=== PATIENT | female | born 1940 | race Caucasian/White ===

== ENCOUNTER 2017-09-07 14:54 | Inpatient (IN) | payer MEDICARE ==
[~2017-09-07] VITALS: Ht 152.4 cm; Wt 84.4 kg
[2017-09-07] VITALS (8 sets, daily range): BP systolic 98–152; BP diastolic 56–91; PULSE 77–148; RESP 16–20; TEMP 98–98.1; O2SAT 95–99
[~2017-09-07 14:54] MED LIST: METO25TA3 PO; MULT1TAB46
[2017-09-07] MEDS ORDERED: SODIUM CHLORIDE 0.9% FLUSH 10 ML FLUSH IVF PRN (15:30)
[2017-09-07] MEDS ORDERED: DILTIAZEM HCL 25 MG/5 ML VIAL IV PUSH ONE (15:30)
[2017-09-07 15:52] LABS: AUTOMATED NEUTROPHIL # 7.4 TH/MM3 (1.8-7.7); BASOPHIL # 0.1 TH/MM3 (0-0.2); BASOPHIL % 1.3 % (0.0-2.0); EOSINOPHIL # 0.2 TH/MM3 (0-0.4); EOSINOPHIL % 1.4 % (0.0-4.0); HEMATOCRIT 41.2 % (35.0-46.0); HEMO FLAGS DIFF FINAL; LYMPH % 23.7 % (9.0-44.0); LYMPHOCYTE # 2.6 TH/MM3 (1.0-4.8); MEAN CELL VOLUME 91.6 FL (80.0-100.0); MEAN CORPUSCULAR HEMOGLOBIN 30.5 PG (27.0-34.0); MEAN CORPUSCULAR HGB CONC 33.3 % (32.0-36.0); NEUT % 67.6 % (16.0-70.0); PLATELET COUNT 351 TH/MM3 (150-450); RED BLOOD COUNT 4.49 MIL/MM3 (4.00-5.30); RED CELL DISTRIBUTION WIDTH 14.7 % (11.6-17.2)
[2017-09-07 16:01] LABS: APTT (PATIENT) 26.2 SEC (24.3-30.1); INTERNATIONAL NORMALIZED RATIO 0.9 RATIO; PROTHROMBIN TIME - PATIENT 10.4 SEC (9.8-11.6)
--- NOTE | 2017-09-07 16:05 | RADRPT ---
EXAM DATE/TIME: 09/07/2017 15:28 [place] COMPARISON: No previous studies available for comparison. INDICATIONS : Elevated heart rate. MEDICAL HISTORY : None. SURGICAL HISTORY : None. ENCOUNTER: Initial ACUITY: 2 days PAIN SCORE: 0/10 LOCATION: chest FINDINGS: A single view of the chest demonstrates the lungs to be symmetrically aerated without evidence of mas s, infiltrate or effusion. Atherosclerotic calcifications are present in the aorta. The cardiomedias tinal contours are unremarkable. Osseous structures are intact. CONCLUSION: No acute disease. Luis Purcell MD on September 07, 2017 at 16:03 Board Certified Radiologist. This report was verified electronically.
[2017-09-07 16:16] LABS: ALT (GPT) 21 U/L (10-53); ANION GAP 7 MEQ/L (5-15); AST (GOT) 19 U/L (15-37); BICARBONATE 25.9 MEQ/L (21.0-32.0); BLOOD UREA NITROGEN 15 MG/DL (7-18); CHLORIDE 106 MEQ/L (98-107); GLOMERULAR FILTRATION RATE 86 ML/MIN (>89); POTASSIUM 3.9 MEQ/L (3.5-5.1); SODIUM (NA) 139 MEQ/L (136-145)
[2017-09-07 16:22] LABS: ALKALINE PHOSPHATASE 81 U/L (45-117); TOTAL BILIRUBIN ADULT 0.2 MG/DL (0.2-1.0)
[2017-09-07] MEDS ORDERED: DILTIAZEM HCL 25 MG/5 ML VIAL IV PUSH PRN (16:45)
[2017-09-07] MEDS ORDERED: SODIUM CHLORID 0.9% 500 ML INJ 500 ML IV ONE (16:45)
--- NOTE | 2017-09-07 16:50 | PD ---
HPI Chief Complaint: Cardiac Complaint Time Seen by Provider: 15:20 Travel History International Travel<30 days: No Contact w/Intl Traveler<30days: No Traveled to known affect area: No History of Present Illness HPI Patient is a 77 year old female who comes in due to rapid heart rate. She says she was at her doctor's for a routine checkup when she was found to be in atrial fibrillation. She was started on metoprolol, but this did not work, so she was told to come to the emergency department. She denies any symptoms. She has not had any chest pain or shortness of breath. She says at the moment she does feel like her heart is racing. She has not had any leg swelling or leg pain. She has not traveled recently. She denies fever or chills. She denies any rashes or skin changes. [facility] Past Medical History Medical History: Denies Significant Hx Cardiovascular Problems: Yes Past Surgical History Surgical History: No Previous Surgery Social History Tobacco Use: No Allergies-Medications (Allergen,Severity, Reaction): Coded Allergies: Penicillins (Verified Allergy, Mild, itching hands and feet, 09/06/17) aspirin (Verified Allergy, Mild, severe nausea, 09/06/17) Reported Meds & Prescriptions Reported Meds & Active Scripts Active Metoprolol Tartrate 25 Mg Tab 25 Mg PO BID Reported Multi Vitamin Daily (Multiple Vitamin) 1 Tab Tab Review of Systems Except as stated in HPI: all other systems reviewed are Neg General / Constitutional: No: Fever, Chills HENT: No: Headaches, Lightheadedness Cardiovascular: Positive: Palpitations, No: Chest Pain or Discomfort Respiratory: No: Shortness of Breath Gastrointestinal: No: Nausea, Vomiting Genitourinary: No: Dysuria Musculoskeletal: No: Edema, Pain Skin: No Rash, No Change in Pigmentation Neurologic: No: Weakness, Dizziness Physical Exam Narrative GENERAL: Awake and alert, in no acute distress. SKIN: Focused skin assessment warm/dry. HEAD: Atraumatic. Normocephalic. EYES: Pupils equal and round. No scleral icterus. ENT: Mucous membranes pink and moist. NECK: Trachea midline. No JVD. CARDIOVASCULAR: Irregular rate and rhythm, tachycardia. No murmur appreciated. RESPIRATORY: No accessory muscle use. Clear to auscultation. Breath sounds equal bilaterally. GASTROINTESTINAL: Abdomen soft, non-tender, nondistended. MUSCULOSKELETAL: No obvious deformities. No clubbing. No cyanosis. No edema. NEUROLOGICAL: Awake and alert. No obvious cranial nerve deficits. Motor grossly within normal limits. Normal speech. PSYCHIATRIC: Appropriate mood and affect; insight and judgment normal. Data Data Last Documented VS Vital Signs Date Time Temp Pulse Resp B/P (MAP) Pulse Ox O2 Delivery O2 Flow Rate FiO2 09/07/17 17:00 77 16 105/76 (86) 99 09/07/17 15:43 Room Air 09/07/17 14:56 98.0 Orders Orders Complete Blood Count With Diff (09/07/17:) Comprehensive Metabolic Panel (09/07/17:) Prothrombin Time / Inr (Pt) (09/07/17:) Act Partial Throm Time (Ptt) (09/07/17 15:) Troponin I (09/07/17 15:) Chest, Single Ap (09/07/17 15:) Ecg Monitoring (09/07/17 15:) Bilateral Bp Monitoring (09/07/17:) Iv Access Insert/Monitor (09/07/17 15:) Oximetry (09/07/17 15:26) Oxygen Administration (09/07/17 15:26) Thyroid Stimulating Hormone (09/07/17 15:26) Diltiazem Inj (Cardizem Inj) (09/07/17 15:30) Sodium Chlorid 0.9% 500 Ml Inj (Ns 500 M (09/07/17 16:45) Diltiazem Inj (Cardizem Inj) (09/07/17 16:45) Electrocardiogram (09/07/17 15:21) Admit Order (Ed Use Only) (09/07/17 ) Labs Laboratory Tests Test 09/07/17 15:32 White Blood Count 11.0 TH/MM3 Red Blood Count 4.49 MIL/MM3 Hemoglobin 13.7 GM/DL Hematocrit 41.2 % Mean Corpuscular Volume 91.6 FL Mean Corpuscular Hemoglobin 30.5 PG Mean Corpuscular Hemoglobin Concent 33.3 % Red Cell Distribution Width 14.7 % Platelet Count 351 TH/MM3 Mean Platelet Volume 7.9 FL Neutrophils (%) (Auto) 67.6 % Lymphocytes (%) (Auto) 23.7 % Monocytes (%) (Auto) 6.0 % Eosinophils (%) (Auto) 1.4 % Basophils (%) (Auto) 1.3 % Neutrophils # (Auto) 7.4 TH/MM3 Lymphocytes # (Auto) 2.6 TH/MM3 Monocytes # (Auto) 0.7 TH/MM3 Eosinophils # (Auto) 0.2 TH/MM3 Basophils # (Auto) 0.1 TH/MM3 CBC Comment DIFF FINAL Differential Comment Prothrombin Time 10.4 SEC Prothromb Time International Ratio 0.9 RATIO Activated Partial Thromboplast Time 26.2 SEC Blood Urea Nitrogen 15 MG/DL Creatinine 0.67 MG/DL Random Glucose 107 MG/DL Total Protein 7.3 GM/DL Albumin 3.6 GM/DL Calcium Level 9.2 MG/DL Alkaline Phosphatase 81 U/L Aspartate Amino Transf (AST/SGOT) 19 U/L Alanine Aminotransferase (ALT/SGPT) 21 U/L Total Bilirubin 0.2 MG/DL Sodium Level 139 MEQ/L Potassium Level 3.9 MEQ/L Chloride Level 106 MEQ/L Carbon Dioxide Level 25.9 MEQ/L Anion Gap 7 MEQ/L Estimat Glomerular Filtration Rate 86 ML/MIN Troponin I LESS THAN 0.02 NG/ML Thyroid Stimulating Hormone 3rd Gen 3.250 uIU/ML MDM Medical Decision Making Medical Screen Exam Complete: Yes Emergency Medical Condition: Yes Medical Record Reviewed: Yes Interpretation(s) ECG shows atrial fibrillation at a rate of 148. Differential Diagnosis Electrolyte abnormality versus ACS versus hyperthyroidism versus new onset A. fib Narrative Course Patient is a 77 year old female who comes in complaining of rapid heart rate. Exam shows rapid irregular heart beat. IV established, labs sent. Patient found to be in afib. Given Cardizem with improvement of her rate. Labs show no acute abnormalities. Patient's heart rate started to increase again, given second bolus of Cardizem. Admitted for further management. Diagnosis Primary Impression: New onset atrial fibrillation Admitting Information Admitting Physician Requests: Admit Tammy Cummings MD Sep 07, 2017 16:50
--- NOTE | 2017-09-07 17:10 | HHI.HP ---
[facility] RAL[facility] Gun[facility] Admission Diagnosis New onset afib Diagnoses: Chief Complaint: A Fib found at PCP appointment Travel History International Travel<30 Days: No Contact w/Intl Traveler <30 Da: No Traveled to Known Affected Are: No History of Present Illness Written by Keri Caraballo, acting as scribe for Dr. Kidd on 09/07/17 at 17:10. 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 Patient presents to the ER with Atrial Fibrillation. Patient reports, "they found atrial fibrillation yesterday at my doctors office. " Patient was started on Metoprolol 25 mg PO BID yesterday by her PCP for new onset Atrial Fibrillation and was instructed to come to the ER today for further evaluation and treatment. Patient reports that she has never had A Fib in the past. Patient did have palpitations at age 20. Patient denies palpitations, shortness of breath, chest pain, dizziness, feeling light headed, fevers or chills. Review of Systems Except as stated in HPI: all other systems reviewed are Neg Past Family Social History Past Medical History Heart Palpitations Spot on liver - believed to be benign, diagnosed 2011 Kidney stones bilaterally 2002 with ureteral stents Lactose intolerance Seasonal allergies Past Surgical History Ureteral stents 2002 C section x 1 Tonsillectomy Appendectomy Reported Medications Metoprolol Tartrate 25 Mg Tab 25 Mg PO BID Multi Vitamin Daily (Multiple Vitamin) 1 Tab Tab Allergies: Coded Allergies: Penicillins (Verified Allergy, Mild, itching hands and feet, 09/06/17) aspirin (Verified Allergy, Mild, severe nausea, 09/06/17) Active Ordered Medications Current Medications Medications (Trade) Dose Ordered Sig/Joselo Route Start Time Stop Time Status Last Admin (NS Flush) 2 ml UNSCH PRN IVF 09/07/17 15:30 Sodium Chloride 500 ml @ 500 mls/hr BOLUS ONCE IV 09/07/17 16:45 09/07/17 17:44 09/07/17 16:45 (Cardizem Inj) 32 mg ONCE PRN IV PUSH 09/07/17 16:45 09/07/17 16:54 Family History Father, at age 77 from metastasized lung cancer, [place] in his 50's also had, "irregular heart beat" Mother, at age 77 from cancerous brain tumor, no other illnesses Brother, at age 62 from respiratory failure secondary to benign tumor on spinal cord resulting in paralysis Maternal GM with RA. Social History , 1 daughter Lives with . Retired. Previously worked in [employer] at [employer] [facility] [employer], [place] Tobacco - smoked 1 ppd for 20 years, quit at age 50. Alcohol - occasionally, special occasions Drugs- none Physical Exam Vital Signs Vital Signs Date Time Temp Pulse Resp B/P (MAP) Pulse Ox O2 Delivery O2 Flow Rate FiO2 09/07/17 17:00 77 16 105/76 (86) 99 09/07/17 15:43 93 16 96 Room Air 09/07/17 15:39 18 95 Room Air 09/07/17 15:39 83 114/56 (75) 126/60 (82) 09/07/17 15:39 95 Room Air 09/07/17 15:33 83 18 114/56 (75) 97 Room Air 09/07/17 15:27 148 18 152/72 (98) 98 Room Air 09/07/17 14:56 98.0 146 16 120/91 (101) 97 Physical Exam GENERAL: This is a well-nourished, well-developed patient, in no apparent distress. SKIN: No rashes, ecchymoses or lesions. Cool and dry. HEAD: Atraumatic. Normocephalic. No temporal or scalp tenderness. EYES: Extraocular motions intact. No scleral icterus. No injection or drainage. CARDIOVASCULAR: Irregularly irregular RESPIRATORY: Clear to auscultation. Breath sounds equal bilaterally. No wheezes , rales, or rhonchi. GASTROINTESTINAL: Abdomen soft, non-tender, nondistended. MUSCULOSKELETAL: Extremities without clubbing, cyanosis, or edema. No joint tenderness, effusion, or edema noted. No calf tenderness. Negative Homans sign bilaterally. NEUROLOGICAL: Awake and alert. No focal deficits. Motor and sensory grossly within normal limits. Five out of 5 muscle strength in all muscle groups. Normal speech. Laboratory Laboratory Tests Test 09/07/17 15:32 White Blood Count 11.0 Red Blood Count 4.49 Hemoglobin 13.7 Hematocrit 41.2 Mean Corpuscular Volume 91.6 Mean Corpuscular Hemoglobin 30.5 Mean Corpuscular Hemoglobin Concent 33.3 Red Cell Distribution Width 14.7 Platelet Count 351 Mean Platelet Volume 7.9 Neutrophils (%) (Auto) 67.6 Lymphocytes (%) (Auto) 23.7 Monocytes (%) (Auto) 6.0 Eosinophils (%) (Auto) 1.4 Basophils (%) (Auto) 1.3 Neutrophils # (Auto) 7.4 Lymphocytes # (Auto) 2.6 Monocytes # (Auto) 0.7 Eosinophils # (Auto) 0.2 Basophils # (Auto) 0.1 CBC Comment DIFF FINAL Differential Comment Prothrombin Time 10.4 Prothromb Time International Ratio 0.9 Activated Partial Thromboplast Time 26.2 Blood Urea Nitrogen 15 Creatinine 0.67 Random Glucose 107 Total Protein 7.3 Albumin 3.6 Calcium Level 9.2 Alkaline Phosphatase 81 Aspartate Amino Transf (AST/SGOT) 19 Alanine Aminotransferase (ALT/SGPT) 21 Total Bilirubin 0.2 Sodium Level 139 Potassium Level 3.9 Chloride Level 106 Carbon Dioxide Level 25.9 Anion Gap 7 Estimat Glomerular Filtration Rate 86 Troponin I LESS THAN 0.02 Thyroid Stimulating Hormone 3rd Gen 3.250 Result Diagram: 09/07/17 1532 09/07/17 1532 Imaging Last Impressions Chest X-Ray 09/07/17 1526 Signed Impressions: Service Date/Time: Thursday, September 07, 2017 15:28 - CONCLUSION: No acute disease. Luis Purcell MD Caprini VTE Risk Assessment Caprini VTE Risk Assessment: Mod/High Risk (score >= 2) Caprini Risk Assessment Model Point Value = 1 Point Value = 2 Point Value = 3 Point Value = 5 Age 41-60 Minor surgery BMI > 25 kg/m2 Swollen legs Varicose veins or History of unexplained or recurrent spontaneous Oral contraceptives or hormone replacement Sepsis (< 1 month) Serious lung disease, including pneumonia (< 1 month) Abnormal pulmonary function Acute myocardial infarction Congestive heart failure (< 1 month) History of inflammatory bowel disease Medical patient at bed rest Age 61-74 Arthroscopic surgery Major open surgery (> 45 min) Laparoscopic surgery (> 45 min) Malignancy Confined to bed (> 72 hours) Immobilizing plaster cast Central venous access Age >= 75 History of VTE Family history of VTE Factor V Leiden Prothrombin [id number] Lupus anticoagulant Anticardiolipin antibodies Elevated serum homocysteine Heparin-induced thrombocytopenia Other congenital or acquired thrombophilia Stroke (< 1 month) Elective arthroplasty Hip, pelvis, or leg fracture Acute spinal cord injury (< 1 month) Prophylaxis Regimen Total Risk Factor Score Risk Level Prophylaxis Regimen 0-1 Low Early ambulation 2 Moderate Order ONE of the following: *Sequential Compression Device (SCD) *Heparin 5000 units SQ BID 3-4 Higher Order ONE of the following medications: *Heparin 5000 units SQ TID *Enoxaparin/Lovenox 40 mg SQ daily (WT < 150 kg, CrCl > 30 mL/min) *Enoxaparin/Lovenox 30 mg SQ daily (WT < 150 kg, CrCl > 10-29 mL/min) *Enoxaparin/Lovenox 30 mg SQ BID (WT < 150 kg, CrCl > 30 mL/min) AND/OR *Sequential Compression Device (SCD) 5 or more Highest Order ONE of the following medications: *Heparin 5000 units SQ TID (Preferred with Epidurals) *Enoxaparin/Lovenox 40 mg SQ daily (WT < 150 kg, CrCl > 30 mL/min) *Enoxaparin/Lovenox 30 mg SQ daily (WT < 150 kg, CrCl > 10-29 mL/min) *Enoxaparin/Lovenox 30 mg SQ BID (WT < 150 kg, CrCl > 30 mL/min) AND *Sequential Compression Device (SCD) Assessment and Plan Problem List: (1) New onset atrial fibrillation ICD Code: I48.91 - Unspecified atrial fibrillation Assessment and Plan This is a 77 year old female patient with a past medical history which includes Heart Palpitations, spot on liver - believed to be benign, diagnosed 2011, kidney stones bilaterally 2002 with ureteral stents, Lactose intolerance and seasonal allergies. Patient presents to the ER with New onset Atrial Fibrillation with RVR initially EKG revealed Atrial Fibrillation RVR Patient given Cardizem IV Push x 2 in ER, heart rate improved start patient on Cardizem drip Start Lovenox for anticoagulation, defer half-way anticoagulation to cardiology monitor on telemetry Echocardiogram ordered and pending consult cardiology serial EKG serial troponin DVT prophylaxis, patient on Lovenox Discussed Condition With This note was transcribed by tea [Keri Caraballo]. I, Dr. Nathan Kidd personally performed the history, physical exam, and medical decision making; and confirmed the accuracy of the information in the transcribed note. Authenticated by Dr. Nathan Kidd on 09/07/17 at 18:26. Physician Certification 2 Midnight Certification Type: Admission for Inpatient Services Order for Inpatient Services The services are ordered in accordance with Medicare regulations or non- Medicare payer requirements, as applicable. In the case of services not specified as inpatient-only, they are appropriately provided as inpatient services in accordance with the 2-midnight benchmark. Estimated LOS (days): 2 days is the estimated time the patient will need to remain in the hospital, assuming treatment plan goals are met and no additional complications. Post-Hospital Plan: Home Keri Caraballo Sep 07, 2017 17:10 Nathan Kidd MD Sep 07, 2017 18:27
[2017-09-07] MEDS ORDERED: MAGNESIUM HYDROXIDE SUSP 30 ML CUP PO PRN (17:15)
[2017-09-07] MEDS ORDERED: DILTIAZEM INJ 125 MG in SODIUM CHLORIDE 0.9% INJ 100 ML IV PRN (17:15)
[2017-09-07] MEDS ORDERED: MORPHINE SULFATE 4 MG/ML INJ IV PUSH PRN (17:15)
[2017-09-07] MEDS ORDERED: SODIUM CHLORIDE 0.9% FLUSH 10 ML FLUSH IV FLUSH PRN ×2 (17:15)
[2017-09-07] MEDS ORDERED: NALOXONE HCL 0.4 MG/ML AMP IV PUSH PRN (17:15)
[2017-09-07] MEDS ORDERED: MORPHINE SULFATE 2 MG/ML INJ IV PRN (17:30)
[2017-09-07] MEDS ORDERED: ENOXAPARIN SODIUM 40 MG/0.4 ML SYRINGE SQ SCH (18:00)
[2017-09-07] MEDS ORDERED: SODIUM CHLORIDE 0.9% FLUSH 10 ML FLUSH IV FLUSH SCH (21:00)
[2017-09-07] MEDS: METOPROLOL TARTRATE 25 MG TAB PO SCH (22:11)
[2017-09-07] MEDS: SODIUM CHLORIDE 0.9% FLUSH 10 ML FLUSH IV FLUSH SCH (22:12)
[2017-09-07 22:52] LABS: CREATINE KINASE 40 U/L (26-192)
[2017-09-08] VITALS (7 sets, daily range): BP systolic 107–128; BP diastolic 58–71; PULSE 55–112; RESP 16–20; TEMP 97.3–98.3; O2SAT 93–95
[2017-09-08 06:01] LABS: BASOPHIL # 0.1 TH/MM3 (0-0.2); BASOPHIL % 0.6 % (0.0-2.0); EOSINOPHIL # 0.2 TH/MM3 (0-0.4); EOSINOPHIL % 1.8 % (0.0-4.0); HEMATOCRIT 36.3 % (35.0-46.0); HEMO FLAGS DIFF FINAL; LYMPH % 26.1 % (9.0-44.0); LYMPHOCYTE # 2.4 TH/MM3 (1.0-4.8); MEAN CELL VOLUME 90.6 FL (80.0-100.0); MEAN CORPUSCULAR HGB CONC 34.2 % (32.0-36.0); MONO % 6.9 % (0.0-8.0); NEUT % 64.6 % (16.0-70.0); PLATELET COUNT 291 TH/MM3 (150-450); RED BLOOD COUNT 4.01 MIL/MM3 (4.00-5.30); RED CELL DISTRIBUTION WIDTH 14.9 % (11.6-17.2); WHITE BLOOD COUNT 9.3 TH/MM3 (4.0-11.0)
[2017-09-08 06:25] LABS: CREATINE KINASE 39 U/L (26-192)
--- NOTE | 2017-09-08 09:13 | EKG ---
Date Performed: 09/07/2017 Time Performed: 20:49:55 PTAGE: 77 years EKG: ATRIAL FIBRILLATION WITH RAPID VENTRICULAR RESPONSE LOW QRS VOLTAGE IN PRECORDIAL LEADS Com pared to prior tracing no significant change ABNORMAL RHYTHM ECG PREVIOUS TRACING : 09/07/2017 15.21 DOCTOR: Giovani Osman Interpretating Date/Time 09/08/2017 09:12:39
--- NOTE | 2017-09-08 09:13 | EKG ---
Date Performed: 09/07/2017 Time Performed: 15:21:42 PTAGE: 77 years EKG: ATRIAL FIBRILLATION WITH RAPID VENTRICULAR RESPONSE MINIMAL ST DEPRESSION ABNORMAL RHYTHM E CG NO PREVIOUS TRACING DOCTOR: Giovani Osman Interpretating Date/Time 09/08/2017 09:12:03
[2017-09-08] MEDS: METOPROLOL TARTRATE 25 MG TAB PO SCH ×2 (09:18→21:36)
[2017-09-08] MEDS: SODIUM CHLORIDE 0.9% FLUSH 10 ML FLUSH IV FLUSH SCH ×2 (09:19→21:37)
[2017-09-08] MEDS ORDERED: DILTIAZEM-CD 120 MG CAP ER PO ONE (09:30)
[2017-09-08] MEDS: APIXABAN 5 MG TABLET PO SCH ×2 (12:42→21:37)
--- NOTE | 2017-09-08 13:25 | MB ---
cc: JAGJIT MORALES MD DATE OF CONSULTATION: 09/08/17 REASON FOR CONSULTATION New onset a-fib. HISTORY OF PRESENT ILLNESS The patient is a very pleasant 77-year-old woman with no prior cardiac history except for a history of palpitations who presented from her primary care physician with newly discovered asymptomatic atrial fibrillation. Initially she was rapid and started on IV Cardizem. Her rates have been more reasonable and she is on oral Cardizem and Lopressor. She has felt somewhat fatigued with the new medication but is otherwise asymptomatic denying chest pain, shortness of breath, lightheadedness or dizziness. PAST MEDICAL HISTORY 1. Palpitations. 2. Kidney stones. CURRENT MEDICATIONS 1. Cardizem 120 mg a day. 2. Lopressor 25 mg b.i.d. ALLERGIES PENICILLIN AND ASPIRIN. PHYSICAL EXAMINATION VITAL SIGNS: Afebrile, pulse 66, respiratory rate 16, BP 107/70, sating 93 room air. GENERAL: A pleasant, elderly woman in no distress. NECK: No JVD. LUNGS: Clear auscultation bilaterally. CARDIOVASCULAR: Irregularly irregular rhythm with a regular rate. No murmurs appreciated. ABDOMEN: Benign. EXTREMITIES: No edema. LABORATORY DATA White count 9.3, hematocrit 36.3, platelets 291. Sodium 139, potassium 3.9, chloride 106, bicarb 25.9, BUN 15, creatinine 0.67, cardiac enzymes are negative x3, glucose is 107. EKG shows a rate-controlled atrial fibrillation with nonspecific ST changes. IMPRESSION New onset atrial fibrillation. The patient's CHADS-Vasc score is 2 for age and gender so I will initiate Eliquis 5 mg b.i.d. If she can ambulate off her Cardizem drip with good rates and she remains asymptomatic, I would be okay with her being discharged home to followup with me in my office with her remaining studies done at that time. If she requires additional rate control medications or her blood pressures become too low, we may have to keep her another day. Further recommendations based on her clinical course. Thank you again for the opportunity to participate in this patient's care. MD FILOMENA Lo/NOE :49 AM /1:10 PM
--- NOTE | 2017-09-08 15:55 | EKG ---
Date Performed: 09/08/2017 Time Performed: 03:50:28 PTAGE: 77 years EKG: Atrial fibrillation Possible inferior infarct - age undetermined Low QRS voltages in precor dial leads Compared to prior tracing no significant change Abnormal ECG PREVIOUS TRACING : 09/07/2017 20.49 DOCTOR: Giovani Osman Interpretating Date/Time 09/08/2017 15:54:01
--- NOTE | 2017-09-08 17:23 | HHI.PR ---
Subjective Remarks Intermittent episodes of tachycardia continue throughout the day. Patient has been walking. She is not getting any significant degree of symptoms with these intermittent episodes but monitored through today and she has not had resolution of her tachycardic episodes. Tachycardic episodes are mostly occurring with ambulation, I watched monitors while she ambulated. Objective Vital Signs Date Time Temp Pulse Resp B/P (MAP) Pulse Ox O2 Delivery O2 Flow Rate FiO2 09/08/17 08:00 Room Air 09/08/17 08:00 100 09/08/17 04:00 97.6 66 16 107/70 (82) 93 09/08/17 00:00 97.4 55 18 128/59 (82) 95 09/07/17 20:47 98 09/07/17 20:00 98.1 102 20 98/56 (70) 95 09/07/17 20:00 Room Air 09/07/17 18:38 112 127/89 09/07/17 18:17 87 16 122/68 (86) 99 Room Air I/O 09/07/17 09/07/17 09/07/17 09/08/17 09/08/17 09/08/17 07:00 15:00 23:00 07:00 15:00 23:00 Intake Total 411 ml Balance 411 ml Intake Oral 360 ml IV Total 51 ml # Voids 2 # Bowel Movements 0 Result Diagram: 09/08/17 0526 09/07/17 1532 Objective Remarks GENERAL: NAD, A&Ox3 HEAD: Normocephalic. NECK: Supple, trachea midline. No lymphadenopathy. EYES: No scleral icterus. No injection or drainage. CARDIOVASCULAR: Irregularly irregular rhythm and rate without murmurs, gallops, or rubs. RESPIRATORY: Breath sounds equal bilaterally. No accessory muscle use. GASTROINTESTINAL: Abdomen soft, non-tender, nondistended. MUSCULOSKELETAL: No cyanosis. No edema. SKIN: Warm and dry. NEURO: No focal neurological deficitis. A/P Problem List: (1) New onset atrial fibrillation ICD Code: I48.91 - Unspecified atrial fibrillation Assessment and Plan Assessment and Plan This is a 77 year old female admitted secondary to new onset atrial fibrillation with RVR A. fib with RVR New onset Asymptomatic Currently on Cardizem and metoprolol Continue present treatment Follow on telemetry Cardiology following Serial cardiac enzymes are negative Echocardiogram pending Eliquis started by cardiology today DVT prophylaxis Nathan Wilks MD Sep 08, 2017 17:23
[2017-09-09] VITALS (7 sets, daily range): BP systolic 101–133; BP diastolic 57–88; PULSE 65–119; RESP 18–20; TEMP 97.5–98.2; O2SAT 93–95
[2017-09-09] MEDS: DILTIAZEM-CD 120 MG CAP ER PO SCH (08:53)
[2017-09-09] MEDS: SODIUM CHLORIDE 0.9% FLUSH 10 ML FLUSH IV FLUSH SCH ×2 (08:53→22:02)
[2017-09-09] MEDS: METOPROLOL TARTRATE 25 MG TAB PO SCH ×2 (08:53→22:01)
[2017-09-09] MEDS: APIXABAN 5 MG TABLET PO SCH ×2 (08:53→22:01)
[2017-09-09] MEDS ORDERED: DIGOXIN 0.5 MG/2 ML VIAL IVS STA (10:11)
--- NOTE | 2017-09-09 10:15 | PD.CARD.PN ---
Subjective Subjective Remarks Pt still w/ rapid afib, very sensitive to drop in bp from meds. Objective Medications Current Medications Medications (Trade) Dose Ordered Sig/Joselo Route Start Time Stop Time Status Last Admin (Cardizem Inj) 32 mg ONCE PRN IV PUSH 09/07/17 16:45 09/07/17 16:54 (Morphine Inj) 2 mg Q3H PRN IV 09/07/17 17:30 (Morphine Inj) 4 mg Q3H PRN IV PUSH 09/07/17 17:15 (Narcan Inj) 0.4 mg UNSCH PRN IV PUSH 09/07/17 17:15 (Milk Of Magnesia Liq) 30 ml Q12H PRN PO 09/07/17 17:15 (NS Flush) 2 ml UNSCH PRN IV FLUSH 09/07/17 17:15 (NS Flush) 2 ml BID IV FLUSH 09/07/17 21:00 09/09/17 08:53 (Lopressor) 25 mg BID PO 09/07/17 21:00 09/09/17 08:53 (Cardizem Cd) 120 mg DAILY PO 09/09/17 09:00 09/09/17 08:53 (Eliquis) 5 mg BID PO 09/08/17 11:00 09/09/17 08:53 Vital Signs / I&O Vital Signs Date Time Temp Pulse Resp B/P (MAP) Pulse Ox O2 Delivery O2 Flow Rate FiO2 09/09/17 04:00 98.0 78 18 123/81 (95) 93 09/09/17 00:00 98.2 97 18 101/72 (82) 94 09/08/17 20:11 112 09/08/17 20:00 97.9 66 18 114/71 (85) 93 09/08/17 20:00 Room Air 09/08/17 16:00 98.3 109 20 125/58 (80) 94 09/08/17 12:00 97.3 93 20 119/69 (86) 94 I/O 09/08/17 09/08/17 09/08/17 09/09/17 09/09/17 09/09/17 07:00 15:00 23:00 07:00 15:00 23:00 Intake Total 411 ml 480 ml 480 ml Balance 411 ml 480 ml 480 ml Intake Oral 360 ml 480 ml 480 ml IV Total 51 ml # Voids 2 5 4 # Bowel Movements 0 0 1 Physical Exam GENERAL: This is a well-nourished, well-developed patient, in no apparent distress. CARDIOVASCULAR: mildly rapid rate and irregular rhythm without murmurs, gallops , or rubs. RESPIRATORY: Clear to auscultation. Breath sounds equal bilaterally. No wheezes , rales, or rhonchi. GASTROINTESTINAL: Abdomen soft, non-tender, nondistended. Normal, active bowel sounds MUSCULOSKELETAL: Extremities without clubbing, cyanosis, or edema. NEURO: Alert & Oriented x4 to person, place, time, situation. Moves all ext x4 Imaging Last Impressions Chest X-Ray 09/07/17 1526 Signed Impressions: Service Date/Time: Thursday, September 07, 2017 15:28 - CONCLUSION: No acute disease. Luis Purcell MD Assessment and Plan Problem List: (1) New onset atrial fibrillation ICD Codes: I48.91 - Unspecified atrial fibrillation Plan: will dig load; on eliquis. If rates do not improve or if she doesn't tolerate the additional rate control meds will consider ablation. Bhavin Booker MD Sep 09, 2017 10:15
--- NOTE | 2017-09-09 15:23 | HHI.PR ---
Subjective Remarks Recurrent tachycardic episode still present and the rate has improved they remain. Digoxin has been added to patient's treatment regime. Patient did have one episode of dizziness after ambulating this morning. Objective Vital Signs Date Time Temp Pulse Resp B/P (MAP) Pulse Ox O2 Delivery O2 Flow Rate FiO2 09/09/17 04:00 98.0 78 18 123/81 (95) 93 09/09/17 00:00 98.2 97 18 101/72 (82) 94 09/08/17 20:11 112 09/08/17 20:00 97.9 66 18 114/71 (85) 93 09/08/17 20:00 Room Air 09/08/17 16:00 98.3 109 20 125/58 (80) 94 I/O 09/08/17 09/08/17 09/08/17 09/09/17 09/09/17 09/09/17 07:00 15:00 23:00 07:00 15:00 23:00 Intake Total 411 ml 480 ml 480 ml Balance 411 ml 480 ml 480 ml Intake Oral 360 ml 480 ml 480 ml IV Total 51 ml # Voids 2 5 4 # Bowel Movements 0 0 1 Result Diagram: 09/08/17 0526 09/07/17 1532 Objective Remarks GENERAL: NAD, A&Ox3 HEAD: Normocephalic. NECK: Supple, trachea midline. No lymphadenopathy. EYES: No scleral icterus. No injection or drainage. CARDIOVASCULAR: Irregularly irregular rhythm and rate without murmurs, gallops, or rubs. RESPIRATORY: Breath sounds equal bilaterally. No accessory muscle use. GASTROINTESTINAL: Abdomen soft, non-tender, nondistended. MUSCULOSKELETAL: No cyanosis. No edema. SKIN: Warm and dry. NEURO: No focal neurological deficitis. A/P Problem List: (1) New onset atrial fibrillation ICD Code: I48.91 - Unspecified atrial fibrillation Assessment and Plan Assessment and Plan This is a 77 year old female admitted secondary to new onset atrial fibrillation with RVR. Cardiology following in plan for right now is to continue medical management but if medical management fails ablation will be considered. Digoxin added. Continue to monitor on telemetry. Monitoring strips evaluated and reviewed, continue to monitor. A. fib with RVR New onset Asymptomatic Currently on Cardizem and metoprolol Continue digoxin Follow on telemetry Cardiology following Serial cardiac enzymes are negative Echocardiogram pending Eliquis started by cardiology today DVT prophylaxis Nathan Wilks MD Sep 09, 2017 15:23
[2017-09-09] MEDS: DIGOXIN 0.5 MG/2 ML VIAL IVS SCH ×2 (16:17→22:09)
[2017-09-10] VITALS (7 sets, daily range): BP systolic 106–125; BP diastolic 56–61; PULSE 63–100; RESP 16–20; TEMP 97.3–98.1; O2SAT 93–97
[2017-09-10] MEDS: APIXABAN 5 MG TABLET PO SCH ×2 (08:25→21:13)
[2017-09-10] MEDS: SODIUM CHLORIDE 0.9% FLUSH 10 ML FLUSH IV FLUSH SCH ×2 (08:25→20:24)
[2017-09-10] MEDS: METOPROLOL TARTRATE 25 MG TAB PO SCH ×2 (08:25→20:23)
[2017-09-10] MEDS: DILTIAZEM-CD 120 MG CAP ER PO SCH (08:25)
--- NOTE | 2017-09-10 08:33 | PD.CARD.PN ---
Subjective Subjective Remarks Pt still w/ rapid afib though rates a little better, she does not feel well on current meds and requests Ablation Objective Medications Current Medications Medications (Trade) Dose Ordered Sig/Joselo Route Start Time Stop Time Status Last Admin (Cardizem Inj) 32 mg ONCE PRN IV PUSH 09/07/17 16:45 09/07/17 16:54 (Morphine Inj) 2 mg Q3H PRN IV 09/07/17 17:30 (Morphine Inj) 4 mg Q3H PRN IV PUSH 09/07/17 17:15 (Narcan Inj) 0.4 mg UNSCH PRN IV PUSH 09/07/17 17:15 (Milk Of Magnesia Liq) 30 ml Q12H PRN PO 09/07/17 17:15 (NS Flush) 2 ml UNSCH PRN IV FLUSH 09/07/17 17:15 (NS Flush) 2 ml BID IV FLUSH 09/07/17 21:00 09/10/17 08:25 (Lopressor) 25 mg BID PO 09/07/17 21:00 09/10/17 08:25 (Cardizem Cd) 120 mg DAILY PO 09/09/17 09:00 09/10/17 08:25 (Eliquis) 5 mg BID PO 09/08/17 11:00 09/10/17 08:25 (Lanoxin) 0.125 mg DAILY PO 09/10/17 09:00 09/10/17 08:25 Vital Signs / I&O Vital Signs Date Time Temp Pulse Resp B/P (MAP) Pulse Ox O2 Delivery O2 Flow Rate FiO2 09/10/17 04:00 97.5 68 18 108/58 (75) 95 09/10/17 00:00 97.7 63 16 107/57 (74) 93 09/10/17 00:00 Room Air 09/09/17 20:09 91 09/09/17 20:00 97.7 80 18 111/57 (75) 93 09/09/17 20:00 Room Air 09/09/17 16:00 97.7 94 20 133/88 (103) 95 09/09/17 12:00 97.5 86 20 110/58 (75) 93 I/O 09/09/17 09/09/17 09/09/17 09/10/17 09/10/17 09/10/17 07:00 15:00 23:00 07:00 15:00 23:00 Intake Total 480 ml 480 ml 240 ml Balance 480 ml 480 ml 240 ml Intake Oral 480 ml 480 ml 240 ml # Voids 4 7 3 # Bowel Movements 1 2 0 Physical Exam GENERAL: This is a well-nourished, well-developed patient, in no apparent distress. CARDIOVASCULAR: mildly rapid rate and irregular rhythm without murmurs, gallops , or rubs. RESPIRATORY: Clear to auscultation. Breath sounds equal bilaterally. No wheezes , rales, or rhonchi. GASTROINTESTINAL: Abdomen soft, non-tender, nondistended. Normal, active bowel sounds MUSCULOSKELETAL: Extremities without clubbing, cyanosis, or edema. NEURO: Alert & Oriented x4 to person, place, time, situation. Moves all ext x4 Imaging Last Impressions Chest X-Ray 09/07/17 1526 Signed Impressions: Service Date/Time: Thursday, September 07, 2017 15:28 - CONCLUSION: No acute disease. Luis Purcell MD Assessment and Plan Problem List: (1) New onset atrial fibrillation ICD Codes: I48.91 - Unspecified atrial fibrillation Plan: On eliquis; rates have not really improved and she feels quite poor on the rate control meds we have added and she requests ablation; will ask Dr. Meier to see. Bhavin Booker MD Sep 10, 2017 08:33
[2017-09-10] MEDS ORDERED: DIGOXIN 0.125 MG TAB PO SCH (09:00)
--- NOTE | 2017-09-10 10:54 | MB ---
cc: MARY MEIER M.D. DATE OF CONSULTATION 09/10/2017 REASON FOR CONSULTATION Atrial fibrillation with fast ventricular response, unable to control with medication. HISTORY OF PRESENT ILLNESS Mrs. Epperson is a 77-year-old female with a history of palpitations, no history of systemic illness, no significant toxic habits. She went to primary care, was found with atrial fibrillation with fast ventricular response. She was referred to the emergency room. Heart rate was very difficult to control. Anticoagulation was initiated. She is on Cardizem, Lopressor and digoxin. Rate still in the 100s. I was consulted for evaluation and management. The chart was reviewed. The patient was evaluated. ALLERGIES PENICILLIN. ASPIRIN. SOCIAL HISTORY Patient drinks occasionally. FAMILY HISTORY Noncontributory to her current medical condition. MEDICATIONS Currently Mrs. Epperson is on - 1. Eliquis 5 mg twice a day. 2. Digoxin 0.125 mg a day. 3. She received two doses of IV digoxin already. 4. Cardizem CD 120 mg a day. 5. She is on IV Cardizem. 6. Metoprolol 25 mg twice a day. REVIEW OF SYSTEMS Currently she refers no chest pain, some shortness of breath and palpitation but no fever. PHYSICAL EXAMINATION GENERAL: On physical exam, alert, fully oriented. VITAL SIGNS: Her blood pressure is 106/57, pulse between 94 to around 110-113, respiratory rate 18. LUNGS: Ventilated. CARDIOVASCULAR: S1-S2, irregular. No gallop. Tachycardic. ABDOMEN: Obese. No mass. No bruit. EXTREMITIES: With no edema. ELECTROCARDIOGRAM Atrial fibrillation, diffuse ST changes. LABORATORY DATA Hemoglobin 12.4, white blood cell 9.3. Potassium 3.9, creatinine 0.67. Troponin less than 0.02. TSH 3.2. INR 0.9. ASSESSMENT AND RECOMMENDATIONS Mrs. Epperson has atrial fibrillation, very difficult to control with medication. No previous chest pain. No previous shortness of breath. Echocardiogram not available. Heart rate very difficult to control. On Eliquis. Basically she is a CHADS-VASc 1-2 at the most. DISCUSSION I had a long conversation with her and her . I am going to be observing her for the next 12-24 hours. If heart rate cannot be controlled, then I will proceed with ablation. First I need an echo to evaluate wall motion and valvular function. If the systolic blood pressure drops sometime below 100, there is not much room for medication titrate. Case extensively discussed with her. Further decision will be taken later today. The risks, the nature and the benefit of ablation clearly was stated to them. The risks include pneumothorax, cardiac perforation, stroke and even . They understood and agreed to proceed. If stable and heart rate cannot be controlled, then possible ablation tomorrow afternoon. Mary Meier MD HS/SSB /10:33 AM /10:44 AM
--- NOTE | 2017-09-10 12:16 | HHI.PR ---
Subjective Remarks The patient said she talked with facing grinder earlier this morning and was anticipating an ablation in the morning. She says the medications she is currently on makes her feel a little dizzy and groggy. She has been ambulating without difficulty. She does not have much of an appetite at this time. Discussed with nursing. Objective Vitals Vital Signs Date Time Temp Pulse Resp B/P (MAP) Pulse Ox O2 Delivery O2 Flow Rate FiO2 09/10/17 11:56 98.0 78 20 112/56 (74) 95 09/10/17 08:00 94 09/10/17 08:00 Room Air 09/10/17 08:00 97.7 88 20 106/57 (73) 93 09/10/17 04:00 97.5 68 18 108/58 (75) 95 09/10/17 00:00 97.7 63 16 107/57 (74) 93 09/10/17 00:00 Room Air 09/09/17 20:09 91 09/09/17 20:00 97.7 80 18 111/57 (75) 93 09/09/17 20:00 Room Air 09/09/17 16:00 97.7 94 20 133/88 (103) 95 I/O 09/09/17 09/09/17 09/09/17 09/10/17 09/10/17 09/10/17 07:00 15:00 23:00 07:00 15:00 23:00 Intake Total 480 ml 480 ml 240 ml Balance 480 ml 480 ml 240 ml Intake Oral 480 ml 480 ml 240 ml # Voids 4 7 3 # Bowel Movements 1 2 0 Result Diagram: 09/08/17 0526 09/07/17 1532 Imaging Last Impressions Chest X-Ray 09/07/17 1526 Signed Impressions: Service Date/Time: Thursday, September 07, 2017 15:28 - CONCLUSION: No acute disease. Luis Purcell MD Objective Remarks GENERAL: NAD, A&Ox3 HEAD: Normocephalic. NECK: Supple, trachea midline. No lymphadenopathy. EYES: No scleral icterus. No injection or drainage. CARDIOVASCULAR: Irregularly irregular rhythm and rate without murmurs, gallops, or rubs. RESPIRATORY: Breath sounds equal bilaterally. No accessory muscle use. GASTROINTESTINAL: Abdomen soft, non-tender, nondistended. MUSCULOSKELETAL: No cyanosis. No edema. SKIN: Warm and dry. NEURO: No focal neurological deficitis. Medications and IVs Current Medications Medications (Trade) Dose Ordered Sig/Joeslo Route Start Time Stop Time Status Last Admin (Cardizem Inj) 32 mg ONCE PRN IV PUSH 09/07/17 16:45 09/07/17 16:54 (Morphine Inj) 2 mg Q3H PRN IV 09/07/17 17:30 (Morphine Inj) 4 mg Q3H PRN IV PUSH 09/07/17 17:15 (Narcan Inj) 0.4 mg UNSCH PRN IV PUSH 09/07/17 17:15 (Milk Of Magnesia Liq) 30 ml Q12H PRN PO 09/07/17 17:15 (NS Flush) 2 ml UNSCH PRN IV FLUSH 09/07/17 17:15 (NS Flush) 2 ml BID IV FLUSH 09/07/17 21:00 09/10/17 08:25 (Lopressor) 25 mg BID PO 09/07/17 21:00 09/10/17 08:25 (Cardizem Cd) 120 mg DAILY PO 09/09/17 09:00 09/10/17 08:25 (Eliquis) 5 mg BID PO 09/08/17 11:00 09/10/17 08:25 (Lanoxin) 0.125 mg DAILY PO 09/10/17 09:00 09/10/17 08:25 A/P Problem List: (1) New onset atrial fibrillation ICD Code: I48.91 - Unspecified atrial fibrillation Assessment and Plan This is a 77 year old female admitted secondary to new onset atrial fibrillation with RVR. A. fib with RVR New onset Asymptomatic Cardiology following. Continue medical management. Likely ablation in AM. Currently on Cardizem and metoprolol Continue digoxin Follow on telemetry Serial cardiac enzymes are negative Echocardiogram pending Eliquis started by cardiology. Discharge Planning D/c once cleared by cardiology Luis Devlin DO Sep 10, 2017 12:16
--- NOTE | 2017-09-10 16:05 | ECHRPT ---
Indication: a fib/flutter CONCLUSIONS The left ventricular systolic function is normal with an estimated ejection fraction in the range of 55-60%. Normal left ventricular size. Mild concentric left ventricular hypertrophy. No regional wall motion abnormalities are present. The left atrial size is mildly dilated. Mild mitral valve regurgitation. No aortic valve regurgitation. No aortic valve stenosis. There is mild tricuspid valve regurgitation. The estimated pulmonary arterial pressure is 29 mmHg. BP: / HR: Rhythm: MEASUREMENTS (Male / Female) Normal Values Technical Quality:Good 2D ECHO LV Diastolic Diameter PLAX 3.5 cm 4.2 - 5.9 / 3.9 - 5.3 cm LV Systolic Diameter PLAX 2.6 cm IVS Diastolic Thickness 1.5 cm 0.6 - 1.0 / 0.6 - 0.9 cm LVPW Diastolic Thickness 1.0 cm 0.6 - 1.0 / 0.6 - 0.9 cm LV Relative Wall Thickness 0.7 RV Internal Dim ED PLAX 3.0 cm M-MODE Aortic Root Diameter MM 3.2 cm LA Systolic Diameter MM 4.5 cm LA Ao Ratio MM 1.4 AV Cusp Separation MM 1.8 cm DOPPLER TR Peak Velocity 149.0 cm/s TR Peak Gradient 8.9 mmHg Right Atrial Pressure 10.0 mmHg Pulmonary Artery Systolic Pressu 18.9 mmHg Right Ventricular Systolic Press 18.9 mmHg FINDINGS LEFT VENTRICLE The left ventricular systolic function is normal with an estimated ejection fraction in the range of 55-60%. Normal left ventricular size. Mild concentric left ventricular hypertrophy. No regional wall motion abnormalities are present. RIGHT VENTRICLE Normal right ventricular size and systolic function. LEFT ATRIUM The left atrial size is mildly dilated. RIGHT ATRIUM The right atrial size is normal. ATRIAL SEPTUM Normal atrial septal thickness without atrial level shunting by limited color doppler interrogation. AORTA The aortic root and proximal ascending aorta are normal in size on limited imaging. MITRAL VALVE Structurally normal mitral valve. Mild mitral valve regurgitation. AORTIC VALVE Trileaflet aortic valve. No aortic valve regurgitation. No aortic valve stenosis. TRICUSPID VALVE Structurally normal tricuspid valve. There is mild tricuspid valve regurgitation. The estimated pulmonary arterial pressure is 29 mmHg. PULMONARY VALVE No pulmonary valve regurgitation or stenosis. VESSELS The inferior vena cava is normal in size. PERICARDIUM No pericardial effusion. Morris Silva MD (Electronically Signed) Final Date:10 September 2017 16:04
[2017-09-11] VITALS (9 sets, daily range): BP systolic 113–125; BP diastolic 54–71; PULSE 86–98; RESP 16–20; TEMP 97.5–98.5; O2SAT 92–96
[2017-09-11] MEDS: SODIUM CHLORIDE 0.9% FLUSH 10 ML FLUSH IV FLUSH SCH ×2 (09:00→21:00)
[2017-09-11] MEDS: DILTIAZEM-CD 120 MG CAP ER PO SCH (10:06)
[2017-09-11] MEDS: METOPROLOL TARTRATE 25 MG TAB PO SCH (10:07)
[2017-09-11] MEDS: APIXABAN 5 MG TABLET PO SCH ×2 (10:19→21:00)
--- NOTE | 2017-09-11 11:36 | HHI.PR ---
Subjective Remarks The patient was ambulating in her room. She was anticipating her procedure later on this afternoon. She had no acute complaints. Discussed with family and nursing. Objective Vitals Vital Signs Date Time Temp Pulse Resp B/P (MAP) Pulse Ox O2 Delivery O2 Flow Rate FiO2 09/11/17 08:00 98.5 98 20 122/66 (84) 95 09/11/17 04:00 97.6 86 18 125/58 (80) 93 09/11/17 00:00 97.5 98 18 115/71 (86) 94 09/10/17 23:00 90 09/10/17 20:00 97.3 100 18 125/61 (82) 97 09/10/17 20:00 Room Air 09/10/17 16:00 98.1 88 20 110/56 (74) 95 09/10/17 11:56 98.0 78 20 112/56 (74) 95 I/O 09/10/17 09/10/17 09/10/17 09/11/17 09/11/17 09/11/17 07:00 15:00 23:00 07:00 15:00 23:00 Intake Total 240 ml 840 ml 480 ml Output Total 600 ml Balance 240 ml 840 ml -120 ml Intake Oral 240 ml 840 ml 480 ml Output Urine Total 600 ml # Voids 3 10 2 # Bowel Movements 0 0 Result Diagram: 09/08/17 0526 09/07/17 1532 Imaging Last Impressions Chest X-Ray 09/07/17 1526 Signed Impressions: Service Date/Time: Thursday, September 07, 2017 15:28 - CONCLUSION: No acute disease. Luis Purcell MD Objective Remarks GENERAL: NAD, A&Ox3 HEAD: Normocephalic. NECK: Supple, trachea midline. No lymphadenopathy. EYES: No scleral icterus. No injection or drainage. CARDIOVASCULAR: Irregularly irregular rhythm and rate without murmurs, gallops, or rubs. RESPIRATORY: Breath sounds equal bilaterally. No accessory muscle use. GASTROINTESTINAL: Abdomen soft, non-tender, nondistended. MUSCULOSKELETAL: No cyanosis. No edema. SKIN: Warm and dry. NEURO: No focal neurological deficitis. PSYCH: Mood and affect appropriate. Medications and IVs Current Medications Medications (Trade) Dose Ordered Sig/Joselo Route Start Time Stop Time Status Last Admin (Cardizem Inj) 32 mg ONCE PRN IV PUSH 09/07/17 16:45 09/07/17 16:54 (Morphine Inj) 2 mg Q3H PRN IV 09/07/17 17:30 (Morphine Inj) 4 mg Q3H PRN IV PUSH 09/07/17 17:15 (Narcan Inj) 0.4 mg UNSCH PRN IV PUSH 09/07/17 17:15 (Milk Of Magnesia Liq) 30 ml Q12H PRN PO 09/07/17 17:15 (NS Flush) 2 ml UNSCH PRN IV FLUSH 09/07/17 17:15 (NS Flush) 2 ml BID IV FLUSH 09/07/17 21:00 09/10/17 20:24 (Lopressor) 25 mg BID PO 09/07/17 21:00 09/11/17 10:07 (Cardizem Cd) 120 mg DAILY PO 09/09/17 09:00 09/11/17 10:06 (Eliquis) 5 mg BID PO 09/08/17 11:00 Future Hold 09/10/17 21:13 A/P Problem List: (1) New onset atrial fibrillation ICD Code: I48.91 - Unspecified atrial fibrillation Assessment and Plan This is a 77 year old female admitted secondary to new onset atrial fibrillation with RVR. A. fib with RVR New onset. Asymptomatic. Echo with normal EF. Trops negative. Cardiology consults appreciated. - Continue medical management. Currently on Cardizem, digoxin and metoprolol. - Follow on telemetry. - Eliquis started by cardiology, on hold. - ablation scheduled for 09/11. PPx: Eliquis on hold for ablation Discharge Planning D/c once cleared by cardiology. Anticipate in AM Luis Devlin DO Sep 11, 2017 11:36
[2017-09-11] MEDS ORDERED: LEVOFLOXACIN 500 MG PREMIX INJ 100 ML IV ONE (12:50)
[2017-09-11] MEDS ORDERED: PROTAMINE SULFATE 50 MG/5 ML VIAL ONE (15:16)
[2017-09-11] MEDS ORDERED: HEPARIN-D5W 25,000 U/250 ML 250 ML ONE (15:16)
[2017-09-11] MEDS ORDERED: ISOPROTERENOL HCL 1 MG/5 ML AMP ONE (15:16)
[2017-09-11] MEDS ORDERED: HEPARIN SODIUM - IV 10,000 UNITS/10 ML VIAL ONE (15:16)
[2017-09-11] MEDS ORDERED: HEPARIN-NS/PF INJ 2,000 ML ONE (15:24)
[2017-09-11] MEDS ORDERED: FUROSEMIDE 40 MG/4 ML VIAL ONE (17:35)
--- NOTE | 2017-09-11 17:40 | PD.CARD ---
Atrial Fibrillation Ablation PROCEDURE DATE: Sep 11, 2017 PROCEDURES PERFORMED: 1. Electrophysiology study on Isuprel infusion 2. CS cannulation 3. 3-D mapping 4. Transseptal approach 5. Right and left heart catheterization 6. Intracardiac echo 7. Radiofrequency ablation of atrial fibrillation 8. Pulmonary vein isolation 9. Posterior wall ablation 10. Mitral valve isolation 11. Mitral line creation 12. Left atrial tachycardia ablation 13. Roof line creation 14. Floor line creation 15. Anterior wall ablation 16. Cardioversion INDICATIONS FOR THE PROCEDURE Ms. Epperson is a 77-year-old female with atrial fibrillation, very symptomatic, HR unable to control with medications referred for electrophysiology study and ablation. The risks, the nature and the benefits of the procedure were clearly stated to her. The risks include pneumothorax, cardiac perforation, stroke, need for open heart surgery and even . The patient understood and agreed to proceed. DESCRIPTION OF THE PROCEDURE IN DETAIL After written informed consent was obtained prior to esophageal echocardiogram, the patient was kept on the table where she was prepped and draped in the usual sterile fashion. Conscious sedation was initiated and maintained throughout the procedure by the anesthesiologist. Once sedation was verified, the right and left inguinal areas were anesthetized with 2% Xylocaine. Using modified Seldinger technique, the left femoral vein was cannulated on three occasions, three guidewires were advanced. Over the wire a 6, 7 and a 10-Prydeinig Hemaquet were advanced. Then the left femoral artery was cannulated on one occasion, one guidewire was advanced. Over the wire a 4-Prydeinig Hemaquet was advanced. Then the right femoral vein was cannulated on one occasion, one guidewire was advanced. Over the wire a 8-Prydeinig Hemaquet was advanced. Then under fluoroscopic guidance through the 6 and 7-Prydeinig Hemaquet, two 5-Prydeinig Prasad curved quadripolar electrophysiology catheters were advanced and placed around the His as well as coronary sinus. Basic interval was measured. The patient was in atrial fibrillation. Through the 10-Prydeinig Hemaquet, a [employer] Ac[employer] intracardiac echo catheter was advanced and placed at the right atrium. Multiple view was obtained. There is pericardial effusion, pulmonary vein was seen, atrial septal was visualized. Then the 8-Prydeinig Hemaquet in the right femoral vein was exchanged for Agilis transseptal sheath that was placed all the way to the superior vena cava. Through the sheath a Eugene needle was advanced, then the sheath, the dilator and the needle were progressed until foci engaged. Once engaged, the needle was advanced. RF was delivered for 2 seconds. I was able to cross into the left atrium. Once the needle crossed, the dilator was advanced. Once the dilator crossed, the sheath was advanced. Once the sheath crossed, the dilator and the needle were removed. I had to predilated using a SL 0 sheet. ICE indicated the sheath is in good position. The patient already received 10,000 units of heparin. The goal is to keep an ACT around 350 during ablation. Then through the sheath a St. Norm 20 pulse circumferential catheter was advanced. Using [employer] endocardial solution mapping system, a two-dimensional configuration of the left atrium was obtained. Points were taken at the left superior and inferior veins, right superior and inferior veins, mitral valve, and appendages. Then through the sheath a St. Norm TactiCath 65cm 3.5mm irrigated tipped mapping and radiofrequency ablation catheter was advanced. Esophageal probe was placed temperature monitoring during ablation. When it increased to 0.5 degrees Celsius above baseline, I moved to a different area of the atrium. First I did isolate the left superior and inferior vein. I did make a comanche around the veins. Posterior was ablated. Then a roof line was created, a floor line was created, a mitral line was isolated, then the mitral valve was isolated. The patient was already in an organized left atrial tachycardia. I did create a line from the floor to the roof area, passing by the left atrial appendage. Then the right superior and inferior veins were isolated. I did remap the atrium. There is no significant signal in the atrium. At this point I decided to proceed with cardioversion. A 200 sync biphasic joule was delivered that converted the patient into sinus rhythm. At that point I did advance the circumferential catheter again into the vein. There was no signal into the vein, pacing from the vein showed no conduction to the atrium. Isuprel infusion was initiated at 20 mcg for over 10 minutes. No tachyarrhythmia was induced, post Isuprel no tachyarrhythmia was induced. At that point the procedure was complete. All catheters were removed, atrial septal sheath was exchanged for 9-Prydeinig Hemaquet, intracardiac echo showed no pericardial effusion. There is still good flow in the pulmonary vein. The patient is going to be transferred to the recovery room. No incident report. The patient tolerated the procedure. Blood loss was minimal. FINDINGS 1. Electrocardiogram: At baseline the patient was in atrial fibrillation, post procedure the patient was in sinus rhythm. 2. Basic interval: Base cycle length was around 480ms. Post ablation she was around 760 milliseconds. AH at 52 and HV at 60 milliseconds. 3. Tachyarrhythmia: Atrial fibrillation was mapped and ablated. Atrial tachycardia was ablated. The ablation was successful. CONCLUSION Successful electrophysiology study, mapping, radiofrequency ablation of atrial fibrillation, left atrial tachycardia, pulmonary vein isolation, posterior ablation, mitral valve isolation, mitral line creation, roof line creation, floor line creation, left atrial tachycardia, and cardioversion. COMMENTS AND RECOMMENDATIONS The patient is going to be transferred to the telemetry unit. Will be observed and when stable can be discharged home. Larry Meier MD Sep 11, 2017 17:40
[2017-09-11] MEDS ORDERED: SODIUM CHLOR 0.9% 250 ML INJ 250 ML IV PRN (17:45)
[2017-09-11] MEDS ORDERED: BACITRACIN OINT 0.9 GM PKT TOP ONE (17:45)
[2017-09-11] MEDS ORDERED: oxyCODONE/ACETAMINOPHEN 5 MG/325 MG TAB PO PRN ×2 (17:45)
[2017-09-11] MEDS ORDERED: ONDANSETRON HCL 4 MG/2 ML VIAL IV PUSH PRN (17:45)
[2017-09-11] MEDS ORDERED: LORazepam 2 MG/ML VIAL IV PUSH PRN (17:45)
[2017-09-11] MEDS ORDERED: ATROPINE SULFATE 1 MG/ML VIAL IV PUSH PRN (17:45)
[2017-09-11] MEDS ORDERED: LIDOCAINE HCL 1% 50 ML VIAL INFIL PRN (17:45)
--- NOTE | 2017-09-11 17:52 | CATHPROC ---
[employer] HIS Report Study Information Study Number Admission Scheduled Start Study Start [id number] Sep 07 2017 5:03PM 09/11/2017 Sep 11 2017 8:49AM [place] Service Electrophysiology Study Admit Source Facility Department Other [facility] - Simplex Operator Physician and Clinical Staff Initial Larry Harding Minilab Operator Priscila Sim,RT(R) TECH2 Minilab Operator Louisa Welch,TACTICAL DEBRIEFER OFFICER Other Anesthesia, LENS SHAPER GRINDER Recorder Xiao Gibbs BSRN Recorder Sheron Cole,SENAIT Recorder Corrie Martínez,SENAIT Scrub Luciano Hollins,RT(R) Procedures Performed Procedure Location (Site) Vessel Name Ablation Procedure Cardioversion ICE CATHETER INSERT RA Atruim RF Ablation LT. ATRIUM LT. ATRIUM Equipment Time Test Worker Description Size Mfg Part Number Used/Scraped NEEDLE, TRANSSEPTAL NRG 98 15:54 [facility] [id number] Used C1 [employer]/ EP 15:54 KIT, TRANSDUCER / AFIB [id number] Used PACER [id number] CATHETER, TACTICATH ABLAT BUNDLE 15:54 BUNDLE-ST. GENE Used 65 BUNDLE *[id number] BUNDLE [id number] CATHETER, FR7 OPTIMA SPIRAL 15:54 BUNDLE-ST. GENE FR7 *[id number]- Used BUNDLE BUNDLE [id number] 15:54 BUNDLE-[employer]. GENE CATHETER, JSN, QUAD BUNDLE FR 5 *[id number] Used BUNDLE [id number] 15:54 BUNDLE-ST. GENE CATHETER, JSN, QUAD BUNDLE FR 5 *[id number]- Used BUNDLE [id number] SET, COOL POINT TUBING 15:54 BUNDLE-ST. GENE *[id number]- Used BUNDLE BUNDLE SHEATH, FR8.5 STEERABLE SM 15:54 BUNDLE-ST. GENE 71CM [id number] Used 71CM BUNDLE COVER, TRANSDUCER CABLE 15:54 [employer] [id number] Used ACUNAV 15:54 CORDIS/PACER SHEATH, FR10 MOON 11CM FR 10 [id number] Used 15:54 CORDIS/PACER SHEATH, FR9 MOON 11CM FR 9 [id number] Used [id number] 15:54 MED[employer] PACK, CCL CUSTOM * Used *[id number] 15:54 MEDLINE PACER DODSON, LIMB * 2660 *[id number] Used [id number] 15:54 [facility] MEDICAL SHEATH, FR4.5 PRELUDE 11CM FR 4.5 Used [id number] 15:54 NAMIC TUBING, HIGH PRESSURE 48" 48" Used *[id number] 15:54 NAMIC TUBING, HIGH PRESSURE 48" 48" Used *[id number] 15:54 [facility] BL[employer]ET,WARM AIR CCL * Used *[id number] 15:54 [facility] MEDICAL ELECTRODE KIT, LOLI X SURFACE * Used *[id number] 355768 15:54 [employer] MEDICAL SHEATH, EPS, FR6 FAST CATH FR 6 Used *[id number] 15:54 [facility] MEDICAL SHEATH, EPS, FR7 FAST CATH FR 7 [id number] Used 189385 15:54 [employer] MEDICAL SHEATH, EPS, FR8 FAST CATH FR 8 Used *[id number] 16:14 [facility] MEDICAL SHEATH, FR8.5 SL0 723598 Used CATHETER, ACUNAV FR10 ICE [id number] 16:08 SELMA FR 10 Used (SELAM) *[id number] [facility] PAD, ELECTROSURGICAL 15:54 * [id number] *[id number] Used SURGICAL GROUNDING (BLUE) History: Current Medications Medication Dosage/Unit Route Frequency Last Date/Time Taken ELIQUIS Beta Sofia History: Allergies Allergy Reaction Penicillins itching hands and feet aspirin severe nausea History: Risk Factors Family History of Hypertension Dyslipidemia Previous GA Previous Heart Failure Premature CAD No No No No No Prior Valve Prior PCI Prior CABG Surgery No No No Cerebrovascular Peripheral Artery Chronic Lung On Dialysis Diabetes Disease Disease Disease No No No No No Labs Hgb (g/dl) Hct (%) RBC (MIL/MM3) WBC (l/cumm) Platelets (thousands) 11.60-17.00 35.00-51.00 4.00-5.90 4.00-11.00 150.00-450.00 12.4 36.3 4 9.3 291 Glucose (mg/dl) BUN (mg/dl) Creatinine (mg/dl) BUN:Creatinine (1:x) 74.00-106.00 7.00-18.00 0.50-1.30 10.00-20.00 107 15 0.6 25 Na (meq/l) K (meq/l) Cl (meq/l) CO2 (mmol/L) Ca (mg/dl) 136.00-145.00 3.50-5.10 98.00-107.00 21.00-32.00 8.50-10.10 139 3.9 106 25.9 9.2 INR (PTT:PT) 0.90-1.10 0.9 Medication Medication Total Dose (Bolus/Oral) Medication Total Dosage/Unit 1% XYLOCAINE 40 mL HEPARIN 57122 units LASIX 40 mg PROTAMINE 40 mg Medications (Bolus/Oral) Medication Time Given Dosage/Unit Administered By Reason 1% XYLOCAINE 09/11/2017 3:58:32 PM 20 mL Larry Meier 20 mL 1% XYLOCAINE given in lab by Larry Meier in Left Groin via Subcutaneous. 1% XYLOCAINE 09/11/2017 4:02:38 PM 20 mL Larry Meier 20 mL 1% XYLOCAINE given in lab by Larry Meier in Right Groin via Subcutaneous. HEPARIN 09/11/2017 4:09:25 PM 55306 units Anesthesia, LENS SHAPER GRINDER As per physicians verbal order 38922 units HEPARIN given in lab by Anesthesia, LENS SHAPER GRINDER Kyle via Peripheral IV. Ordered by Larry Meier . Reason: As per physicians verbal order. HEPARIN 09/11/2017 5:00:54 PM 1000 units Anesthesia, LENS SHAPER GRINDER As per physicians verbal order 1000 units HEPARIN given in lab by Anesthesia, LENS SHAPER GRINDER in Right Antecubital via Peripheral IV. Ordered b Larry Castillo. Reason: As per physicians verbal order. PROTAMINE 09/11/2017 5:40:00 PM 40 mg Anesthesia, LENS SHAPER GRINDER As per physicians v erbal order 40 mg PROTAMINE given in lab by Anesthesia, LENS SHAPER GRINDER in Right Antecubital via Peripheral IV. Ordered by Larry Rizzo. Reason: As per physicians verbal order. LASIX 09/11/2017 5:40:10 PM 40 mg Anesthesia, LENS SHAPER GRINDER As per physicians mallory bal order 40 mg LASIX given in lab by Anesthesia, LENS SHAPER GRINDER in Right Antecubital via Peripheral IV. Ordered by Larry Meier. Reason: As per physicians verbal order. Medication (Drip) Medication Time Given Dosage/Unit Concentration/Unit Diluent (ml) Solution HEPARIN DRIP 09/11/2017 4:24:01 PM 1000 units/hr 55970 units 250 D5W 1000 units/hr HEPARIN DRIP given in lab by Anesthesia, LENS SHAPER GRINDER via Peripheral IV. Pump/Drip Flow = 10 ml /hr using [place] [address] units in 250 ml. Ordered by Larry Meier. Reason: As per physicians verbal order. ISUPREL 09/11/2017 5:15:00 PM 20 mcg/min 1 mg 250 NaCl .9 20 mcg/min ISUPREL given in lab by Anesthesia, LENS SHAPER GRINDER in Right Antecubital via Peripheral IV. Pump/Drip Flow = 300 ml/hr using NaCl .9 with a concentration of 1 mg in 250 ml. Ordered by Larry Meier. Reason: As per physicians verbal order. IV Solutions 09/11/2017 3:18:22 PM 0 mL (IV) NaCl .9 IV Solutions given in lab by Anesthesia, LENS SHAPER GRINDER in Right Antecubital via Peripheral IV. Pump/Drip Flow = 50 ml/hr using NaCl .9. Ordered by Larry Meier. Reason: As per physicians verbal order. IV Solutions 09/11/2017 3:18:52 PM 0 mL (IV) NaCl .9 IV Solutions given in lab by Anesthesia, LENS SHAPER GRINDER in Left Forearm via Peripheral IV. Pump/Drip Flow = 50 ml/hr using NaCl .9. Ordered by Larry Meier. Reason: As per physicians verbal order. Initial Case Assessment Cardiovascular HR NIBP 118 155/72 Edema Present Skin color Skin None Normal Warm Dry Neurological State Oriented to time-place- Alert Moves all extremities person Respiration - General Respiration Rate SpO2 (%) (B/min) 20 96 Final Case Assessment Cardiovascular HR NIBP Chest Pain 95 158/64 0 Edema Present Skin color Skin None Normal Warm Dry Neurological State Comment: sedated Respiration - General Respiration Rate SpO2 (%) (B/min) 20 100 Chronological Log Time Study Chronological Log 15:07:45 Patient arrived via Bed. A campa catheter is securely in place. Levaquin noted given on arnulfo or at 1400. 15:07:46 Patient Name, D.O.B, / Armband Verified By R.N. 15:07:47 Consent signed by the physician and the patient and verified by the [facility] staff. 15:07:47 Pre-op and post- op instructions given; patient acknowledges understanding of instructions. 15:07:48 Verbal Stimulation=2 Physical Stimulation=2 Airway=2 Respiration=2 TOTAL=8. (0=absent, 1=li mited, 2=present) 15:07:59 Patient has been NPO for More than 6Hrs. 15:08:00 Skin Breakdown- none per pt 15:08:07 Patient Warmer Placed on the Table. 15:08:08 Disposable Defibrillator Pads Placed On Patient. 15:08:10 Rodolfo Prominences Protected 15:08:12 A # 20 IV was noted in the Antecubital (right). Grade = 0 15:08:13 A # 20 IV was noted in the Forearm (left). Grade = 0 15:08:14 History and physical on the chart. 15:16:23 Verbal Stimulation=2 Physical Stimulation=2 Airway=2 Respiration=2 TOTAL=10. (0=absent, 1=l imited, 2=present) 15:16:39 Anesthesia at bedside. Assumes care of patient. Kyle LENS SHAPER GRINDER 15:17:00 Immediate Presedation assesment performed by physician. IV Solutions given in lab by Anesthesia, LENS SHAPER GRINDER in Right Antecubital via Peripheral IV. Pump/Drip Flow = 50 ml/hr using 15:18:22 NaCl .9. Ordered by Larry Meier. Reason: As per physicians verbal order. IV Solutions given in lab by Anesthesia, LENS SHAPER GRINDER in Left Forearm via Peripheral IV. Pump/Drip Flow = 50 ml/hr using NaCl 15:18:52 .9. Ordered by Larry Meier. Reason: As per physicians verbal order. Assessment: Initial Case, FB=804 BPM, FFGD=282/72 mmhg, Edema=None, Color=Normal, Skin = Warm, Dry 15:19:15 Neurological: State=Alert, Ox3, SANTILLAN Respiration: Resp=20 B/min, SpO2=96 % 15:19:32 Table restraints applied according to hospital policy 15:19:34 Right groin prepped with 2% chlorhexidine, and draped after a 3 min. waiting time. 15:19:38 Left groin prepped with 2% chlorhexidine, and draped after a 3 min. waiting time. 15:35:[address] Carrasco present for intubation. 15:38:47 Reference ECG taken 15:41:34 MD paged 15:44:09 MD responded 15:52:50 MD arrived. Time Out. Correct patient, procedure, procedure equipment, site and side verified with physicia n present. Time 15:55:35 concurred by MD, individual staff and LENS SHAPER GRINDER. Time Out #2 - Consents verified, patient in correct position, all results are labled and displa yed, safety precautions 15:55:52 taken, antibiotics administered. Time out concurred by MD, individual staff and LENS SHAPER GRINDER in procedu re 15:55:53 Case Start 15:56:38 HOMERO in progress. 15:58:16 HOMERO complete. 15:58:32 20 mL 1% XYLOCAINE given in lab by Larry Meier in Left Groin via Subcutaneous. 15:59:05 Vascular access was obtained in the Fem Vein (left). 15:59:11 Vascular access was obtained in the Fem Vein (left). 15:59:11 Vascular access was obtained in the Fem Vein (left). 15:59:12 Vascular access was obtained in the Fem Art (left). A SHEATH, FR4.5 PRELUDE 11CM FR 4.5 was advanced into the Fem Art (left) using the Modified Nicole petra technique. 16:00:28 0.9%NaCl pressure line connected. 16:02:08 A SHEATH, EPS, FR6 FAST CATH FR 6 was advanced into the Fem Vein (left) using the Modified Seldinger technique. 16:02:16 A SHEATH, EPS, FR7 FAST CATH FR 7 was advanced into the Fem Vein (left) using the Modified Seldinger technique. 16:02:26 A SHEATH, FR10 MOON 11CM FR 10 was advanced into the Fem Vein (left) using the Modified S eldinger technique. 16:02:38 20 mL 1% XYLOCAINE given in lab by Larry Meier in Right Groin via Subcutaneous. 16:02:49 Vascular access was obtained in the Fem Vein (right). 16:02:58 A SHEATH, EPS, FR8 FAST CATH FR 8 was advanced into the Fem Vein (right) using the Modified Seldinger technique. A CATHETER, JSN, QUAD BUNDLE FR 5 was advanced vis Fem Vein (left) and placed in the CS. Placem ent was visually 16:04:32 confirmed under fluoroscopy. A CATHETER, JSN, QUAD BUNDLE FR 5 was advanced vis Fem Vein (left) and placed in the HIS. Place ment was 16:05:57 visually confirmed under fluoroscopy. A SHEATH, FR8.5 STEERABLE SM 71CM BUNDLE 71CM was exchanged in the Fem Vein (right). This was n ecessary in 16:07:35 order for catheter support. 16:08:12 CATHETER, ACUNAV FR10 ICE (SELAM) FR 10 Was Postioned. 16:09:03 [place]. [address] units HEPARIN given in lab by Anesthesia, LENS SHAPER GRINDER Kyle via Peripheral IV. Ordered by Larry Meier. Reason: As 16:09:25 per physicians verbal order. 16:11:45 Suzette out. Switched to wire 0.32 16:12:47 [place] back in. A SHEATH, FR8.5 SL0 was exchanged in the Fem Vein (right). This was necessary in order for cath eter support. Agilis 16:15:01 catheter was removed. 16:15:51 Activated Clotting Time Drawn 16:17:17 An eps was advanced to the right atrium and passed through the septal wall to the left atri um. 16:17:29 SLO out. A SHEATH, FR8.5 STEERABLE SM 71CM BUNDLE 71CM was exchanged in the Fem Vein (right). This was n ecessary in 16:17:59 order for catheter support. A CATHETER, FR7 OPTIMA SPIRAL BUNDLE FR7 was advanced vis Fem Vein (right) and placed in the LA . Placement 16:18:59 was visually confirmed under fluoroscopy. Mapping in progress. 16:23:09 Mapping complete. Blakely Catheter was removed 16:23:34 ACT (Normal Range 90-180) = 353 1000 units/hr HEPARIN DRIP given in lab by Anesthesia, LENS SHAPER GRINDER via Peripheral IV. Pump/Drip Flow = 10 ml/hr using 16:24:01 [place] [address] units in 250 ml. Ordered by Larry Meier. Reason: As per phy sicians verbal order. A CATHETER, TACTICATH ABLAT 65 BUNDLE was advanced via Fem Vein (right) and placed in the LA. P lacement was 16:27:23 visually confirmed under fluoroscopy. 16:28:00 RF Ablation of the LT. ATRIUM with an eps. 16:31:04 Ablation in progress. 16:53:13 Activated Clotting Time Drawn 16:56:11 Ablation continues. 16:59:00 ACT (Normal Range 90-180) = 333 1000 units HEPARIN given in lab by Anesthesia, LENS SHAPER GRINDER in Right Antecubital via Peripheral IV. Ord ered by Larry Meier. 17:00:54 Reason: As per physicians verbal order. 17:08:59 Activated Clotting Time Drawn 17:09:39 ECG rhythm of AF noted. Patient cardioverted at 200 joules. Success 17:11:12 Ablation catheter removed. Blakely catheter reinserted. 17:14:00 ACT (Normal Range 90-180) = 352 20 mcg/min ISUPREL given in lab by Anesthesia, LENS SHAPER GRINDER in Right Antecubital via Peripheral IV. Pum p/Drip Flow = 300 17:15:00 ml/hr using NaCl .9 with a concentration of 1 mg in 250 ml. Ordered by Larry Meier. Reaso n: As per physicians verbal order. 17:31:35 Isuprel gtt off. 17:31:53 Catheters were removed by Dr. Meier. 17:32:44 Ablation procedure performed: AFIB. 17:32:53 EP Procedure was performed. Assessment: Final Case, HR=95 BPM, VRKX=688/64 mmhg, Chest Pain=0, Edema=None, Color=Normal, Sk in = Warm, Dry 17:33:12 Neurological: Comment=sedated Respiration: Resp=20 B/min, VfR8=004 % 17:34:05 Sheath(s) left in place, will be removed in Holding Area. NS infusing to venous sheaths at kvo rate. 17:34:36 Sterile dressing applied to site 17:34:50 No case complications noted. 17:38:53 PACU notified that case has ended and patient will be arriving. Spoke with Krys 17:39:29 Bedside Report will be given. 40 mg PROTAMINE given in lab by Anesthesia, LENS SHAPER GRINDER in Right Antecubital via Peripheral IV. Order ed by Larry Meier. 17:40:00 Reason: As per physicians verbal order. 40 mg LASIX given in lab by Anesthesia, LENS SHAPER GRINDER in Right Antecubital via Peripheral IV. Ordered b Larry Castillo. 17:40:10 Reason: As per physicians verbal order. 17:47:56 Activated Clotting Time Drawn 17:51:00 ACT (Normal Range 90-180) = 128 17:51:10 Case End 18:00:00 [facility] in stable condition with LENS SHAPER GRINDER. End Study - Contrast Media Used In Study Contrast Total Opened (mL) Total Used (mL) Total Wasted (mL) Unspecified 0 0 0 End Study - Maximum Contrast Load Max Contrast Load (mL) 720.1 End Study - Radiation Exposure Fluoro Time (minutes) 2.6 End Study - Patient Disposition Complications Transferred To Interventional Outcome No Telemetry Bed successful
[2017-09-11] MEDS ORDERED: DO NOT ADM ANY ANTICOAGULANT DRUGS PRN (18:05)
[2017-09-11] MEDS: METOPROLOL TARTRATE 50 MG TAB PO SCH (21:00)
[2017-09-11] MEDS: AMIODARONE 200 MG TAB PO SCH (21:00)
[2017-09-12] VITALS (17 sets, daily range): BP systolic 111–138; BP diastolic 55–73; PULSE 71–77; RESP 16–20; TEMP 97.4–98.1; O2SAT 92–96
[2017-09-12 06:04] LABS: APTT (PATIENT) 25.2 SEC (24.3-30.1); INTERNATIONAL NORMALIZED RATIO 1.1 RATIO; PROTHROMBIN TIME - PATIENT 11.7 SEC (9.8-11.6)
--- NOTE | 2017-09-12 08:22 | PD.CARD.PN ---
Subjective Subjective Remarks Feeling okay. Objective Medications Current Medications Medications (Trade) Dose Ordered Sig/Joselo Route Start Time Stop Time Status Last Admin (Cardizem Inj) 32 mg ONCE PRN IV PUSH 09/07/17 16:45 09/07/17 16:54 (Morphine Inj) 2 mg Q3H PRN IV 09/07/17 17:30 (Morphine Inj) 4 mg Q3H PRN IV PUSH 09/07/17 17:15 (Narcan Inj) 0.4 mg UNSCH PRN IV PUSH 09/07/17 17:15 (Milk Of Magnesia Liq) 30 ml Q12H PRN PO 09/07/17 17:15 (NS Flush) 2 ml UNSCH PRN IV FLUSH 09/07/17 17:15 (NS Flush) 2 ml BID IV FLUSH 09/07/17 21:00 09/11/17 21:00 (Eliquis) 5 mg BID PO 09/08/17 11:00 Future hold 09/11/17 21:00 (Lopressor) 50 mg BID PO 09/11/17 21:00 09/11/17 21:00 (Cordarone) 400 mg BID PO 09/11/17 21:00 09/18/17 09:01 09/11/17 21:00 (Percocet 5-325 Mg) 1 tab Q4H PRN PO 09/11/17 17:45 09/11/17 21:00 (Percocet 5-325 Mg) 2 tab Q4H PRN PO 09/11/17 17:45 (Ativan Inj) 0.5 mg UNSCH PRN IV PUSH 09/11/17 17:45 09/12/17 17:44 (Atropine Inj) 0.5 mg UNSCH PRN IV PUSH 09/11/17 17:45 Sodium Chloride 250 ml @ 500 mls/hr ONCE PRN IV 09/11/17 17:45 09/12/17 17:44 (Zofran Inj) 4 mg Q4H PRN IV PUSH 09/11/17 17:45 (Xylocaine 1% Inj (50 ml)) 10 ml UNSCH PRN INFIL 09/11/17 17:45 09/12/17 17:44 (Cordarone) 200 mg DAILY PO 09/19/17 09:00 Miscellaneous Information ALL NURSING DEPARTME... UNSCH PRN .XX 09/11/17 18:05 09/12/17 18:04 Vital Signs / I&O Vital Signs Date Time Temp Pulse Resp B/P (MAP) Pulse Ox O2 Delivery O2 Flow Rate FiO2 09/12/17 07:34 96 Nasal Cannula 2.00 09/12/17 07:34 97.6 72 18 138/73 (94) 96 09/12/17 06:00 72 09/12/17 05:00 72 09/12/17 04:00 72 09/12/17 03:00 72 09/12/17 03:00 97.4 74 20 111/55 (73) 96 09/12/17 02:00 74 09/12/17 01:00 76 09/12/17 00:00 76 09/12/17 00:00 77 16 118/60 (79) 94 09/11/17 23:00 88 09/11/17 22:30 16 09/11/17 22:00 90 09/11/17 21:00 88 09/11/17 20:00 88 09/11/17 20:00 96 Nasal Cannula 1.00 09/11/17 19:30 89 16 125/68 (87) 96 09/11/17 19:30 88 19 110/55 (73) 99 Nasal Cannula 2 09/11/17 19:15 87 18 117/59 (78) 99 Nasal Cannula 2 09/11/17 19:00 97.7 88 20 122/61 (81) 96 Nasal Cannula 2 09/11/17 18:45 87 20 121/60 (80) 97 Nasal Cannula 2 09/11/17 18:30 86 15 127/63 (84) 100 Nasal Cannula 2 09/11/17 18:15 86 17 130/61 (84) 100 Nasal Cannula 2 09/11/17 18:05 97.7 90 24 142/65 (90) 100 Nasal Cannula 2 Manual Cuff/Auscultation 09/11/17 12:00 98.2 91 20 113/54 (73) 92 I/O 09/11/17 09/11/17 09/11/17 09/12/17 09/12/17 09/12/17 07:00 15:00 23:00 07:00 15:00 23:00 Intake Total 480 ml 360 ml Output Total 600 ml 900 ml 650 ml Balance -120 ml -900 ml -290 ml Intake Oral 480 ml 360 ml Output Urine Total 600 ml 900 ml 650 ml # Voids 2 Physical Exam GENERAL: Well-nourished, well-developed patient. SKIN: Warm and dry. Groin site soft without bruising or bleeding. HEAD: Normocephalic. EYES: No scleral icterus. No injection or drainage. NECK: Supple, trachea midline. No JVD or lymphadenopathy. CARDIOVASCULAR: Regular rate and rhythm without murmurs, gallops, or rubs. RESPIRATORY: Breath sounds equal bilaterally. No accessory muscle use. GASTROINTESTINAL: Abdomen soft, non-tender, nondistended. EXTREMITIES: No cyanosis, or edema. NEUROLOGICAL: Awake, alert, and oriented x 3. Non-focal. Laboratory Laboratory Tests Test 09/12/17 05:26 Prothrombin Time 11.7 SEC Prothromb Time International Ratio 1.1 RATIO Activated Partial Thromboplast Time 25.2 SEC Digoxin Level 1.0 NG/ML Imaging Last Impressions Chest X-Ray 09/07/17 1526 Signed Impressions: Service Date/Time: Thursday, September 07, 2017 15:28 - CONCLUSION: No acute disease. Luis Purcell MD Assessment and Plan Problem List: (1) New onset atrial fibrillation ICD Codes: I48.91 - Unspecified atrial fibrillation Status: Acute Plan: Stable, normal sinus rhythm status post ablation. Groin site stable. Continue eliquis. Okay to discharge home from electrophysiology standpoint per my discussion with Dr. Meier. Follow up with him in 3 weeks. Rhiannon Tinoco Sep 12, 2017 08:22
--- NOTE | 2017-09-12 09:01 | EKG ---
Date Performed: 09/12/2017 Time Performed: 03:36:34 PTAGE: 77 years EKG: Sinus rhythm Anterior T wave changes are nonspecific Low QRS voltages in precordial leads Borderline ECG PREVIOUS TRACING : 09/11/2017 18.53 DOCTOR: Dennis Yanes Interpretating Date/Time 09/12/2017 09:00:36
[2017-09-12] MEDS: SODIUM CHLORIDE 0.9% FLUSH 10 ML FLUSH IV FLUSH SCH (09:28)
[2017-09-12] MEDS: APIXABAN 5 MG TABLET PO SCH (09:28)
[2017-09-12] MEDS: AMIODARONE 200 MG TAB PO SCH (09:28)
[2017-09-12] MEDS: METOPROLOL TARTRATE 50 MG TAB PO SCH (09:31)
--- NOTE | 2017-09-12 09:43 | EKG ---
Date Performed: 09/11/2017 Time Performed: 18:53:16 PTAGE: 77 years EKG: Sinus rhythm NONSPECIFIC T-WAVE ABNORMALITY BORDERLINE ECG PREVIOUS TRACING : 09/08/2017 03.50 DOCTOR: Dennis Yanes Interpretating Date/Time 09/12/2017 09:42:07
[2017-09-12] MEDS ORDERED: OXYC1TAB63 PO (13:41)
[2017-09-12] MEDS ORDERED: AMIO200T PO ×2 (13:41)
[2017-09-12] MEDS ORDERED: APIX5TAB PO (13:41)
--- NOTE | 2017-09-12 13:42 | HHI.DCPOC ---
Discharge Care Plan Goals to Promote Your Health * To prevent worsening of your condition and complications * To maintain your health at the optimal level Directions to Meet Your Goals Take your medications as prescribed Follow your dietary instruction Follow activity as directed Keep your appointments as scheduled Take your immunizations and boosters as scheduled If your symptoms worsen call your PCP, if no PCP go to Urgent Care Center or Emergency Room Smoking is Dangerous to Your Health. Avoid second hand smoke Call the 24-hour hour crisis hotline for domestic abuse at Jamey Hilario MD Sep 12, 2017 13:42
[2017-09-12] MEDS ORDERED: METO-309 PO (14:21)
--- NOTE | 2017-09-12 14:34 | HHI.DS ---
Discharge Summary Admission Date Sep 07, 2017 at 17:03 Discharge Date: Sep 12, 2017 Admitting Diagnosis New onset afib (1) New onset atrial fibrillation ICD Code: I48.91 - Unspecified atrial fibrillation Status: Acute Procedures A. fib ablation on 09/11 Brief History - From Admission Written by Keri Caraballo, acting as scribe for Dr. Kidd on 09/07/17 at 17:10. 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 Patient presents to the ER with Atrial Fibrillation. Patient reports, "they found atrial fibrillation yesterday at my doctors office. " Patient was started on Metoprolol 25 mg PO BID yesterday by her PCP for new onset Atrial Fibrillation and was instructed to come to the ER today for further evaluation and treatment. Patient reports that she has never had A Fib in the past. Patient did have palpitations at age 20. Patient denies palpitations, shortness of breath, chest pain, dizziness, feeling light headed, fevers or chills. CBC/BMP: 09/08/17 0526 Significant Findings Laboratory Tests Test 09/12/17 05:26 Prothrombin Time 11.7 SEC (9.8-11.6) PE at Discharge GENERAL: NAD, A&Ox3 HEAD: Normocephalic. NECK: Supple, trachea midline. No lymphadenopathy. EYES: No scleral icterus. No injection or drainage. CARDIOVASCULAR: Irregularly irregular rhythm and rate without murmurs, gallops, or rubs. RESPIRATORY: Breath sounds equal bilaterally. No accessory muscle use. GASTROINTESTINAL: Abdomen soft, non-tender, nondistended. MUSCULOSKELETAL: No cyanosis. No edema. SKIN: Warm and dry. NEURO: No focal neurological deficitis. PSYCH: Mood and affect appropriate. Hospital Course Patient was initially admitted and started on antiarrhythmic therapy as well as rate control. She was loaded with digoxin as well as beta blockers. However due to her refractory tachyarrhythmias she eventually underwent ablation for A. fib successfully. Patient's heart rate and vital signs remained stable. Patient was initially little bit lightheaded on her last day of hospitalization but this resolved. Physical therapy walked the patient and maintain that she was stable for discharge and that the patient had a walker at home if needed. Patient was counseled about the risks of bleeding given that she was on a blood thinner if she had any falls. She was instructed to be exercise extra caution should she experience any further lightheadedness while ambulating. Patient has met maximum benefit from hospitalization and is clinically stable for discharge. Pt Condition on Discharge: Stable Discharge Disposition: Discharge Home Discharge Time: > 30 minutes Discharge Instructions DIET: Follow Instructions for: Heart Healthy Diet Activities you can perform: Weight Bearing as Veronika Follow up Referrals: Cardiology - 3 Weeks with Larry Meier MD PCP Follow-up - 10 Days New Medications: Amiodarone (Amiodarone) 200 Mg Tab 400 MG PO BID for afib, #12 TAB Amiodarone (Amiodarone) 200 Mg Tab 200 MG PO DAILY for afib, #30 TAB Take after completing 400 mg amiodarone regimen Apixaban (Eliquis) 5 Mg Tab 5 MG PO BID for afib, #60 TAB Metoprolol Tartrate (Lopressor) 50 Mg Tab 50 MG PO BID for heart rate, #60 TAB Oxycodone HCl/Acetaminophen (Oxycodone-Acetaminophen 5-325) 5 Mg-325 Mg Tablet 1 TAB PO Q4H PRN for PAIN SCALE 5 TO 10, #20 TAB Continued Medications: Multiple Vitamin (Multi Vitamin Daily) 1 Tab Tab Discontinued Medications: Metoprolol Tartrate (Metoprolol Tartrate) 25 Mg Tab 25 MG PO BID, #60 TAB 0 Refills Jamey Hilario MD Sep 12, 2017 14:34
[2017-09-19] MEDS ORDERED: AMIODARONE 200 MG TAB PO SCH (09:00)
== END 2017-09-12 15:16 | disposition home or self-care (01) | DRG 274 ==
LOC: NEPC 14:54 → NEDA 17:03 → N04B 19:51 → HCIS 09-11 14:55
PROVIDERS: ADMIT Hospitalist; ATTEND Hospitalist
PROC: 02K83ZZ Map Conduction Mechanism, Percutaneous Approach (ICD-10-PCS; 2017-09-11)
PROC: 4A023FZ Measurement of Cardiac Rhythm, Percutaneous Approach (ICD-10-PCS; 2017-09-11)
PROC: 5A2204Z Restoration of Cardiac Rhythm, Single (ICD-10-PCS; 2017-09-11)
PROC: 02K83ZZ Map Conduction Mechanism, Percutaneous Approach (ICD-10-PCS; 2017-09-11)
PROC: 02583ZZ Destruction of Conduction Mechanism, Percutaneous Approach (ICD-10-PCS; principal; 2017-09-11 14:00)
DX: I48.91 Unspecified atrial fibrillation (principal); E73.9 Lactose intolerance, unspecified; R42 Dizziness and giddiness; T50.905A Adverse effect of unspecified drugs, medicaments and biological substances, initial encounter; Z87.891 Personal history of nicotine dependence; Z88.0 Allergy status to penicillin; Z88.8 Allergy status to other drugs, medicaments and biological substances
CPT/HCPCS: 71010; 76937; 80053; 80162; 82550; 84443; 84484; 85002; 85025; 85610; 85730; 92960; 93005; 93306; 93613; 93623; 93656; 93662; 96374; 96376; C1730; C1731; C1732; C1759; C1766; C2630; J1160; J1644; J1650; J1940; J1956; J2720; J7040

== ENCOUNTER 2017-12-29 18:11 | Emergency (ER) | payer MEDICARE ==
[~2017-12-29] VITALS: Ht 152.4 cm; Wt 84.0 kg
[~2017-12-29 18:11] MED LIST changes: +AMIO200T PO; +APIX5TAB PO; +METO-309 PO; -METO25TA3 PO; +OXYC1TAB63 PO
[2017-12-29 18:41] VITALS: BP 174/75; PULSE 78; RESP 18; TEMP 98.2; O2SAT 97
[2017-12-29 19:59] VITALS: BP 212/93; PULSE 74; RESP 18; O2SAT 98
[2017-12-29] MEDS ORDERED: LEVO50TA4 PO (19:59)
--- NOTE | 2017-12-29 20:25 | PD ---
HPI Chief Complaint: Hypertension Time Seen by Provider: 20:09 Travel History International Travel<30 days: No Contact w/Intl Traveler<30days: No Traveled to known affect area: No History of Present Illness HPI 77 year old female presents to the emergency department for evaluation of HTN. Patient states that she always takes her bp and it usually runs around 120-140 systolic. She states she was on metoprolol, but Dr. Meier took her off of it in September due to side effects. She states she has h/o a-fib s/p ablation, hypothyroidism. She states she was having side effects from her amiodarone and Dr. Meier took her off of it yesterday. She is also off her Eliquis due to an upcoming colonoscopy. She denies any headache, chest pain, SOB. No abdominal pain, nausea, vomiting, diarrhea. She states she feels fatigued. She denies any pain. No exacerbating or alleviating factors. Moderate severity. PFSH Past Medical History Heart Rhythm Problems: Yes (afib-now) Cancer: No Cardiovascular Problems: Yes High Cholesterol: No Chest Pain: No Congestive Heart Failure: No Endocrine: No Gastrointestinal Disorders: Yes GERD: No Genitourinary: Yes Hiatal Hernia: No Immune Disorder: No Implanted Vascular Access Dvce: Yes Kidney Stones: Yes (lithotripsy) Musculoskeletal: No Neurologic: No Psychiatric: No Reproductive: No Respiratory: No Renal Failure: No Thyroid Disease: Yes ("HYPOTHYROIDISM") Ulcer: No Past Surgical History Abdominal Surgery: Yes (c section, appendectomy, lithotripsy) AICD: No Arteriovenous Shunt: No Cardiac Surgery: No Ear Surgery: No Endocrine Surgery: No Eye Surgery: No Gynecologic Surgery: Yes () Insulin Pump: No Joint Replacement: No Oral Surgery: No Pacemaker: No Thoracic Surgery: No Other Surgery: Yes ("ABLATION") Social History Alcohol Use: No Tobacco Use: No Substance Use: No Allergies-Medications (Allergen,Severity, Reaction): Coded Allergies: Penicillins (Verified Allergy, Mild, itching hands and feet, 12/29/17) aspirin (Verified Allergy, Mild, severe nausea, 12/29/17) Reported Meds & Prescriptions Reported Meds & Active Scripts Active Eliquis (Apixaban) 5 Mg Tab 5 Mg PO BID Reported Levothyroxine (Levothyroxine Sodium) 50 Mcg Tab 50 Mcg PO DAILY Multi Vitamin Daily (Multiple Vitamin) 1 Tab Tab Review of Systems Except as stated in HPI: all other systems reviewed are Neg Physical Exam Narrative GENERAL: Well developed, well nourished female patient, ambulatory and in no acute distress. Afebrile. SKIN: Warm and dry. HEAD: Normocephalic. Atraumatic. EYES: No scleral icterus. No injection or drainage. NECK: Supple, trachea midline. No JVD or lymphadenopathy. CARDIOVASCULAR: Regular rate and rhythm without murmurs, gallops, or rubs. RESPIRATORY: Breath sounds equal bilaterally. No accessory muscle use. Lung sounds are clear to auscultation. GASTROINTESTINAL: Abdomen soft, non-tender, nondistended. MUSCULOSKELETAL: No cyanosis, or edema. BACK: Nontender without obvious deformity. No CVA tenderness. Data Data Last Documented VS Vital Signs Date Time Temp Pulse Resp B/P (MAP) Pulse Ox O2 Delivery O2 Flow Rate FiO2 12/29/17 22:08 81 18 161/72 (101) 96 Room Air 12/29/17 18:41 98.2 Orders Orders Electrocardiogram (12/29/17 20:16) Basic Metabolic Panel (Bmp) (12/29/17 20:16) Ckmb (Isoenzyme) Profile (12/29/17 20:16) Complete Blood Count With Diff (12/29/17 20:16) Magnesium (Mg) (12/29/17 20:16) Prothrombin Time / Inr (Pt) (12/29/17 20:16) Act Partial Throm Time (Ptt) (12/29/17 20:16) Troponin I (12/29/17 20:16) Ecg Monitoring (12/29/17 20:16) Bilateral Bp Monitoring (12/29/17 20:16) Iv Access Insert/Monitor (12/29/17 20:16) Oximetry (12/29/17 20:16) Oxygen Administration (12/29/17 20:16) Sodium Chloride 0.9% Flush (Ns Flush) (12/29/17 20:30) Hydralazine Inj (Apresoline Inj) (12/29/17 20:30) Labs Laboratory Tests Test 12/29/17 20:22 White Blood Count 12.0 TH/MM3 Red Blood Count 4.93 MIL/MM3 Hemoglobin 15.3 GM/DL Hematocrit 44.9 % Mean Corpuscular Volume 91.1 FL Mean Corpuscular Hemoglobin 31.0 PG Mean Corpuscular Hemoglobin Concent 34.0 % Red Cell Distribution Width 15.2 % Platelet Count 354 TH/MM3 Mean Platelet Volume 7.4 FL Neutrophils (%) (Auto) 68.5 % Lymphocytes (%) (Auto) 23.9 % Monocytes (%) (Auto) 5.8 % Eosinophils (%) (Auto) 1.2 % Basophils (%) (Auto) 0.6 % Neutrophils # (Auto) 8.2 TH/MM3 Lymphocytes # (Auto) 2.9 TH/MM3 Monocytes # (Auto) 0.7 TH/MM3 Eosinophils # (Auto) 0.1 TH/MM3 Basophils # (Auto) 0.1 TH/MM3 CBC Comment DIFF FINAL Differential Comment Prothrombin Time 10.2 SEC Prothromb Time International Ratio 1.0 RATIO Activated Partial Thromboplast Time 26.9 SEC Blood Urea Nitrogen 17 MG/DL Creatinine 0.84 MG/DL Random Glucose 94 MG/DL Calcium Level 9.5 MG/DL Magnesium Level 2.3 MG/DL Sodium Level 139 MEQ/L Potassium Level 3.8 MEQ/L Chloride Level 102 MEQ/L Carbon Dioxide Level 27.5 MEQ/L Anion Gap 10 MEQ/L Estimat Glomerular Filtration Rate 66 ML/MIN Total Creatine Kinase 59 U/L Troponin I LESS THAN 0.02 NG/ML MDM Medical Decision Making Medical Screen Exam Complete: Yes Emergency Medical Condition: Yes Medical Record Reviewed: Yes Differential Diagnosis HTN vs. ACS vs. electrolyte abnormality vs. dehydration Narrative Course 77 year old female presents to the emergency department for evaluation of HTN. BP is 212/93. EKG, CBC, BMP, Magnesium, CK, Troponin, PTT, PT/INR are ordered and pending. Patient is given hydralazine 10 mg IV for HTN. EKG shows SR, no acute ST changes. CBC shows leukocytosis of 12.0. BMP shows no acute abnormality. Magnesium is 2.3. CK is 59. Troponin is less than 0.02. Coags are unremarkable. My attending physician, Dr. Diaz, has examined patient as well and agrees with plan and disposition. Patient will be discharged with a RX for lisinopril. Patient verbalizes agreement and understanding. Diagnosis Primary Impression: Hypertension Qualified Codes: I10 - Essential (primary) hypertension Referrals: Larry Meier MD Primary Care Physician Patient Instructions: General Instructions, Hypertension (ED) Additional Instructions: Take lisinopril as directed. Follow up with your primary care physician and Dr. Meier. Return to the emergency department for any acute, worsening of symptoms. Med/Other Pt SpecificInfo: Prescription(s) given Scripts Lisinopril (Lisinopril) 10 Mg Tab 10 MG PO DAILY, #30 TAB 0 Refills Prov: Fay Brown 12/29/17 Disposition: 01 DISCHARGE HOME Condition: Stable Fay Brown Dec 29, 2017 20:25
[2017-12-29 20:27] VITALS: BP_SYST 171; BP_SYST 180; BP_DIAS 65; BP_DIAS 76; PULSE 72; RESP 18; O2SAT 95
[2017-12-29] MEDS ORDERED: SODIUM CHLORIDE 0.9% FLUSH 10 ML FLUSH IVF PRN (20:30)
[2017-12-29] MEDS ORDERED: hydrALAZINE HCL 20 MG/ML VIAL IV PUSH ONE (20:30)
[2017-12-29 20:46] LABS: AUTOMATED NEUTROPHIL # 8.2 TH/MM3 (1.8-7.7); BASOPHIL # 0.1 TH/MM3 (0-0.2); BASOPHIL % 0.6 % (0.0-2.0); EOSINOPHIL # 0.1 TH/MM3 (0-0.4); EOSINOPHIL % 1.2 % (0.0-4.0); HEMATOCRIT 44.9 % (35.0-46.0); HEMOGLOBIN 15.3 GM/DL (11.6-15.3); LYMPH % 23.9 % (9.0-44.0); LYMPHOCYTE # 2.9 TH/MM3 (1.0-4.8); MEAN CELL VOLUME 91.1 FL (80.0-100.0); MEAN PLATELET VOLUME 7.4 FL (7.0-11.0); MONO % 5.8 % (0.0-8.0); MONOCYTE # 0.7 TH/MM3 (0-0.9); NEUT % 68.5 % (16.0-70.0); PLATELET COUNT 354 TH/MM3 (150-450); RED BLOOD COUNT 4.93 MIL/MM3 (4.00-5.30); RED CELL DISTRIBUTION WIDTH 15.2 % (11.6-17.2)
[2017-12-29 20:53] LABS: PROTHROMBIN TIME - PATIENT 10.2 SEC (9.8-11.6)
[2017-12-29 21:02] LABS: BICARBONATE 27.5 MEQ/L (21.0-32.0); BLOOD UREA NITROGEN 17 MG/DL (7-18); CALCIUM 9.5 MG/DL (8.5-10.1); CHLORIDE 102 MEQ/L (98-107); CREATININE 0.84 MG/DL (0.50-1.00); GLOMERULAR FILTRATION RATE 66 ML/MIN (>89); GLUCOSE,RANDOM 94 MG/DL (74-106); MAGNESIUM 2.3 MG/DL (1.5-2.5); SODIUM (NA) 139 MEQ/L (136-145)
[2017-12-29 21:06] LABS: TROPONIN I LESS THAN 0.02 NG/ML (0.02-0.05)
--- NOTE | 2017-12-29 22:07 | EKG ---
Date Performed: 12/29/2017 Time Performed: 20:42:42 PTAGE: 77 years EKG: Sinus rhythm NORMAL ECG No significant change from prior electrocardiogram. DOCTOR: Vinh Ramirez Interpretating Date/Time 12/29/2017 22:06:33
[2017-12-29 22:08] VITALS: BP 161/72; PULSE 81; RESP 18; O2SAT 96
--- NOTE | 2017-12-29 22:48 | PD ---
Physical Exam Narrative I, Dr. Diaz, have reviewed the advance practice practitioner's documentation and am in agreement, met with the patient face to face, made the diagnosis, and the medical decision making was done by me. *My assessment and Findings: Elevated blood pressure 77yo F with PMH of afib s/p ablation by Dr. Garcia here with elevated blood pressure. Labs reviewed, WBC 12.0. BMP unremarkable. Creatinine normal. Troponin negative. Pt has no chest pain, sob, n/v, abdominal pain, focal weakness or numbness, or headache. Pt had some generalized fatigue. Pt given hydralazine 10mg IV and repeat BP has improved. Instructed pt to follow up with her senior foreman. Data Data Last Documented VS Vital Signs Date Time Temp Pulse Resp B/P (MAP) Pulse Ox O2 Delivery O2 Flow Rate FiO2 12/29/17 23:06 12/29/17 22:08 81 18 96 Room Air 12/29/17 18:41 98.2 Orders Orders Electrocardiogram (12/29/17 20:16) Basic Metabolic Panel (Bmp) (12/29/17 20:16) Ckmb (Isoenzyme) Profile (12/29/17 20:16) Complete Blood Count With Diff (12/29/17 20:16) Magnesium (Mg) (12/29/17 20:16) Prothrombin Time / Inr (Pt) (12/29/17 20:16) Act Partial Throm Time (Ptt) (12/29/17 20:16) Troponin I (12/29/17 20:16) Ecg Monitoring (12/29/17 20:16) Bilateral Bp Monitoring (12/29/17 20:16) Iv Access Insert/Monitor (12/29/17 20:16) Oximetry (12/29/17 20:16) Oxygen Administration (12/29/17 20:16) Sodium Chloride 0.9% Flush (Ns Flush) (12/29/17 20:30) Hydralazine Inj (Apresoline Inj) (12/29/17 20:30) Ed Discharge Order (12/29/17 22:59) Labs Laboratory Tests Test 12/29/17 20:22 White Blood Count 12.0 TH/MM3 Red Blood Count 4.93 MIL/MM3 Hemoglobin 15.3 GM/DL Hematocrit 44.9 % Mean Corpuscular Volume 91.1 FL Mean Corpuscular Hemoglobin 31.0 PG Mean Corpuscular Hemoglobin Concent 34.0 % Red Cell Distribution Width 15.2 % Platelet Count 354 TH/MM3 Mean Platelet Volume 7.4 FL Neutrophils (%) (Auto) 68.5 % Lymphocytes (%) (Auto) 23.9 % Monocytes (%) (Auto) 5.8 % Eosinophils (%) (Auto) 1.2 % Basophils (%) (Auto) 0.6 % Neutrophils # (Auto) 8.2 TH/MM3 Lymphocytes # (Auto) 2.9 TH/MM3 Monocytes # (Auto) 0.7 TH/MM3 Eosinophils # (Auto) 0.1 TH/MM3 Basophils # (Auto) 0.1 TH/MM3 CBC Comment DIFF FINAL Differential Comment Prothrombin Time 10.2 SEC Prothromb Time International Ratio 1.0 RATIO Activated Partial Thromboplast Time 26.9 SEC Blood Urea Nitrogen 17 MG/DL Creatinine 0.84 MG/DL Random Glucose 94 MG/DL Calcium Level 9.5 MG/DL Magnesium Level 2.3 MG/DL Sodium Level 139 MEQ/L Potassium Level 3.8 MEQ/L Chloride Level 102 MEQ/L Carbon Dioxide Level 27.5 MEQ/L Anion Gap 10 MEQ/L Estimat Glomerular Filtration Rate 66 ML/MIN Total Creatine Kinase 59 U/L Troponin I LESS THAN 0.02 NG/ML [facility] Supervised Visit with STEVEN: Yes Interpretation(s) EKG: NSR 72bpm. LAD. TWI III. No significant ST elevation. Diagnosis Primary Impression: Elevated blood pressure reading Scripts Lisinopril (Lisinopril) 10 Mg Tab 10 MG PO DAILY, #30 TAB 0 Refills Prov: Fay Brown 12/29/17 Chantale Diaz DO Dec 29, 2017 22:48
[2017-12-29] MEDS ORDERED: LISI10TA3 PO (22:50)
== END 2017-12-29 23:22 | disposition home or self-care (01) ==
LOC: NEPC 18:11
DX: I10 Essential (primary) hypertension (principal); I48.91 Unspecified atrial fibrillation; E03.9 Hypothyroidism, unspecified
CPT/HCPCS: 80048; 82550; 83735; 84484; 85025; 85610; 85730; 93005; 96374; 99284; J0360